=== PATIENT | male | born 1960 | race Caucasian/White ===

== ENCOUNTER 2019-01-14 20:55 | Inpatient (IN) | payer MEDICARE, OTHER ==
--- NOTE | 2019-01-14 21:33 | ED ---
Psychiatric Complaint - HPI Summary HPI Summary: This patient is a 58 year old M brought in by police to [facility] with a chief complaint of visual hallucinations that began prior to arrival. Patient states he is seeing people that might harm him. The patient rates the pain 0/10 in severity. Symptoms aggravated by nothing. Symptoms alleviated by nothing. Per police, the patient is at risk of hurting himself and the staff at the facility where he lives. Patient states that on thanksgiving he had a blood clot move to his eye and states that his vision in his right eye disappeared; it has since resolved. - History Of Current Complaint Chief Complaint: EDMentalHealth Time Seen by Provider: 01/14/19 21:13 Hx Obtained From: Patient Onset/Duration: Sudden Onset, Lasting Hours, Still Present Timing: Constant Severity Initially: Mild Severity Currently: Mild Aggravating Factor(s): Nothing Alleviating Factor(s): Nothing Associated Signs And Symptoms: Positive: Hallucinating Related History: Positive For: Prior Psychiatric Issues - Allergies/Home Medications Allergies/Adverse Reactions: Allergies Allergy/AdvReac Type Severity Reaction Status Date / Time No Known Allergies Allergy Verified 01/14/19 21:06 Home Medications: Home Medications Acetaminophen [Tylenol Extra Strength] 1,000 mg PO Q6HR 01/14/19 [History Confirmed 01/14/19] Al Hydrox/Mg Hydrox/Denisse BULK* [Mylanta - BULK BOT*] 30 ml PO DAILY PRN [History Confirmed 01/14/19] Aspirin TAB* [Aspirin 325 MG TAB*] 325 mg PO DAILY 01/14/19 [History Confirmed 01/14/19] Atenolol [Tenormin 100 MG] 100 mg PO BID 01/14/19 [History Confirmed 01/14/19] Atorvastatin* [Lipitor*] 40 mg PO DAILY 01/14/19 [History Confirmed 01/14/19] Bismuth Subsalicylate [Kaopectate] 30 ml PO DAILY PRN 01/14/19 [History Confirmed 01/14/19] Calcium Carbonate CHEW TAB* [Tums*] 1,000 mg PO BID PRN 01/14/19 [History Confirmed 01/14/19] Clopidogrel Bisulfate [Plavix] 75 mg PO DAILY 01/14/19 [History Confirmed ] Duloxetine HCl [Cymbalta] 60 mg PO DAILY 01/14/19 [History Confirmed 01/14/19] GuaiFENesin DM sugar free* [Robitussin DM sugar free*] 10 ml PO DAILY PRN [History Confirmed 01/14/19] Insulin Glargine,Hum.rec.anlog [Lantus] 20 unit SUBCUT DAILY 01/14/19 [History Confirmed 01/14/19] Levothyroxine Sodium [Synthroid] 50 mcg PO DAILY 01/14/19 [History Confirmed 04/29] Lisdexamfetamine (NF) [Vyvanse (NF)] 70 mg PO DAILY 01/14/19 [History Confirmed 01/14/19] Loperamide HCl [Imodium A-D] 2 mg PO DAILY PRN 01/14/19 [History Confirmed 01/14] Magnesium Chloride 64 mg PO BID 01/14/19 [History Confirmed 01/14/19] Magnesium Hydroxide [Milk of Magnesia] 30 ml PO DAILY PRN 01/14/19 [History Confirmed 01/14/19] Neomycin/Bacitracin/Polymyxinb [Neosporin Ointment] 28.3 gm TOPICAL DAILY PRN [History Confirmed 01/14/19] Omeprazole 20 mg PO DAILY 01/14/19 [History Confirmed 01/14/19] Ramipril 10 mg PO DAILY 01/14/19 [History Confirmed 01/14/19] amLODIPine TAB* [Norvasc 5 mg TAB*] 5 mg PO DAILY 01/14/19 [History Confirmed ] cloNIDine HCl [Clonidine HCl ER 0.1 MG] 0.05 mg PO DAILY 01/14/19 [History Confirmed 01/14/19] glipiZIDE [Glucotrol Xl] 5 mg PO BID 01/14/19 [History Confirmed 01/14/19] metFORMIN* [Glucophage 1000 MG TAB *] 1,000 mg PO BID 01/14/19 [History Confirmed 01/14/19] PMH/Surg Hx/FS Hx/Imm Hx Previously Healthy: Yes Sensory History: Denies: Hx Vision Problem EENT History: Denies: Hx Deafness Infectious Disease History: No Infectious Disease History: Denies: Traveled Outside the [place] in Last 30 Days Review of Systems Negative: Fever Positive: Other - Positive visual hallucinations All Other Systems Reviewed And Are Negative: Yes Physical Exam - Summary Physical Exam Summary: VITAL SIGNS: Reviewed. GENERAL: Patient is a well-developed and nourished male who is lying comfortable in the stretcher. Patient is not in any acute respiratory distress. HEAD AND FACE: No signs of trauma. No ecchymosis, hematomas or skull depressions. No sinus tenderness. EYES: PERRLA, EOMI x 2, No injected conjunctiva, no nystagmus. EARS: Hearing grossly intact. Ear canals and tympanic membranes are within normal limits. MOUTH: Oropharynx within normal limits. NECK: Supple, trachea is midline, no adenopathy, no JVD, no carotid bruit, no c- spine tenderness, neck with full ROM. CHEST: Symmetric, no tenderness at palpation LUNGS: Clear to auscultation bilaterally. No wheezing or crackles. CVS: Regular rate and rhythm, S1 and S2 present, no murmurs or gallops appreciated. ABDOMEN: Soft, non-tender. No signs of distention. No rebound no guarding, and no masses palpated. Bowel sounds are normal. EXTREMITIES: FROM in all major joints, no edema, no cyanosis or clubbing. NEURO: Alert and oriented x 3. No acute neurological deficits. Speech is normal and follows commands. SKIN: Dry and warm. Small area of broken skin over his scalp. PSYCH: Disorganized. Impulsive. Triage Information Reviewed: Yes Vital Signs On Initial Exam: Initial Vitals Temp Pulse Resp BP Pulse Ox 97.9 F 87 16 163/91 99 01/14/19 21:00 01/14/19 21:00 01/14/19 21:00 01/14/19 21:00 01/14/19 21:00 Vital Signs Reviewed: Yes Diagnostics - Vital Signs Vital Signs Temp Pulse Resp BP Pulse Ox 01/14/19 21:00 97.9 F 87 16 163/91 99 - Laboratory Result Diagrams: 01/14/19 21:43 01/14/19 21:43 Lab Statement: Any lab studies that have been ordered have been reviewed, and results considered in the medical decision making process. Re-Evaluation - Re-Evaluation 1st re-eval Re-Evaluation Time: 02:07 Change: Improved Comment: Patient was found to have nonketotic hyperglyinemia. In the ED course the patient was treated with IV insulin and IV fluid. The patients last glucose finger stick was 240. At this time (02:07) the patient was medically cleared. Patient advised to continue taking his diabetic medications if he is discharged home or if he is admitted to the psychiatric facility at [facility]. Course/Dx - Course Course Of Treatment: This patient is a 58 year old M brought in by police to [facility] with a chief complaint of visual hallucinations that began prior to arrival. Patient states he is seeing people that might harm him. Patient was found to have nonketotic hyperglycinemia. In the ED course the patient was treated with IV insulin and IV fluid. At 02:07 the patient was medically cleared. Patient advised to continue taking his diabetic medications if he is discharged home or if he is admitted to the psychiatric facility at [facility]. Discussed patient care with Dr. Blackmon, psychiatrist, at 03:45 and he recommends giving the patient Zyprexa and waiting for re-evaluation in the morning. Dx nonketotic hyperglycinemia and psychosis. Patient will be signed out to Dr. Cazares upon provider shift change pending mental health evaluation and disposition. - Differential Dx/Clinical Impression Provider Diagnosis: Nonketotic hyperglycinemia, Psychosis - Physician Notifications Discussed Care Of Patient With: Jefferson Blackmon Time Discussed With Above Provider: 03:45 Instructed by Provider To: Other - Discussed patient care with Dr. Blackmon, psychiatrist, at 03:45 and he recommends giving the patient Zyprexa and waiting for re-evaluation in the morning. Discharge - Sign-Out/Discharge Documenting (check all that apply): Sign-Out Patient - upon provider shift change pending [facility] Signing out patient TO: Jenn Cazares Patient Received Moderate/Deep Sedation with Procedure: No - Discharge Plan Condition: Stable Referrals: Galen Chan MD [Primary Care Provider] - - Attestation Statements Document Initiated by Scribe: Yes Documenting Scribe: Meghna Torres Provider For Whom Mansiibmaria ines is Documenting (Include Credential): Dr. Zafar Moncada MD Scribe Attestation: Meghna Alaniz, scribed for Dr. Zafar Moncada MD on 01/15/19 at 0551. Status of Scribe Document: Ready
[2019-01-14 21:49] LABS: ABS Basophils 0.1 10^3/ul (0-0.2); ABS Eosinophils 0.2 10^3/ul (0-0.6); ABS Lymphocytes 2.3 10^3/ul (1.0-4.8); ABS Monocytes 0.8 10^3/ul (0-0.8); ABS Neutrophils 7.8 10^3/ul (1.5-7.7); ABS Nucleated RBC 0 10^3/ul; Eosinophil % 1.5 %; Hematocrit 43 % (42-52); Hemoglobin 14.4 g/dl (14.0-18.0); Mean Corpuscular HGB Conc 34 g/dl (31-36); Mean Corpuscular Hemoglobin 31 pg (27-31); Mean Corpuscular Volume 92 fL (80-94); Mean Platelet Volume 9.1 fL (7.4-10.4); Nucleated Red Blood Cells % 0; Platelet Count 320 10^3/ul (150-450); Red Blood Count 4.64 10^6/ul (4.00-5.40); Red Cell Distribution Width 14 % (10.5-15); White Blood Count 11.2 10^3/ul (3.5-10.8)
[2019-01-14 22:21] LABS: Urine Appearance Clear; Urine Bacteria Absent (Absent); Urine Bilirubin Negative (Negative); Urine Blood 1+ (Negative); Urine Color Yellow; Urine Glucose 3+(>=500 mg/dL) (Negative); Urine Ketones Negative (Negative); Urine Nitrite Negative (Negative); Urine Protein 2+(100 mg/dL) (Negative); Urine Red Blood Cell Trace(0-2/hpf) (Absent); Urine Specific Gravity 1.025 (1.010-1.030); Urine Urobilinogen Negative (Negative); Urine White Blood Cell Trace(0-5/hpf) (Absent)
[2019-01-14 22:39] LABS: ALT 24 U/L (7-52); AST 25 U/L (13-39); Albumin 4.1 g/dL (3.2-5.2); Albumin/Globulin Ratio 1.1 (1-3); Alkaline Phosphatase 68 U/L (34-104); Anion Gap 13 mmol/L (2-11); BUN/Creatinine Ratio 16.4 (8-20); Blood Urea Nitrogen 23 mg/dL (6-24); CO2 Carbon Dioxide 23 mmol/L (22-32); Calcium 9.2 mg/dL (8.6-10.3); Chloride 93 mmol/L (101-111); EGFR African American 62.8 (>60); EGFR Non-African American 51.9 (>60); Globulin 3.8 g/dL (2-4); Glucose 492 mg/dL (70-100); Potassium 4.7 mmol/L (3.5-5.0); Sodium 129 mmol/L (135-145); Total Protein 7.9 g/dL (6.4-8.9)
[2019-01-14 22:47] LABS: TSH (Thyroid Stimulating Horm) 6.71 mcIU/mL (0.34-5.60)
[2019-01-14 22:47] LABS: Barbiturates Urine Screen None Detected (None Detect); Benzodiazepine Urine Screen None Detected (None Detect); Urine Cannabinoids Screen None Detected (None Detect)
[2019-01-14] MEDS ORDERED: NS 0.9% 1000 ML** 1,000 ML IV ONE (22:55)
[2019-01-14] MEDS ORDERED: Insulin REGULAR(*) 1 UNITS UNIT IV PUSH ONE (22:56)
[2019-01-14 22:57] LABS: Acetaminophen < 15 mcg/mL; Alcohol < 10 mg/dL (<10); Salicylate < 2.50 mg/dL (<30)
[2019-01-15] MEDS ORDERED: NS 0.9% 1000 ML** 1,000 ML IV ONE ×2 (00:47→09:49)
[2019-01-15] MEDS ORDERED: Insulin REGULAR(*) 1 UNITS UNIT IV PUSH ONE ×2 (00:47→09:38)
[2019-01-15] MEDS ORDERED: OLANzapine TAB* 10 MG PO ONE (03:41)
[2019-01-15] MEDS: Insulin GLARGINE(*) 1 UNITS UNIT SUBCUT SCH (05:08)
[2019-01-15] MEDS: Levothyroxine TAB* 50 MCG TAB PO SCH (05:56)
[2019-01-15] MEDS: Aspirin TAB* 325 MG PO SCH (07:57)
[2019-01-15] MEDS: Atenolol TAB* 50 MG PO SCH ×2 (07:57→22:14)
[2019-01-15] MEDS ORDERED: glipiZIDE TAB.XL* 5 MG PO SCH (08:00)
[2019-01-15] MEDS ORDERED: metFORMIN* 1,000 MG TAB PO SCH (08:00)
[2019-01-15] MEDS ORDERED: amLODIPine TAB* 5 MG PO SCH (09:00)
[2019-01-15] MEDS ORDERED: Ramipril CAP* 10 MG PO SCH (09:00)
--- NOTE | 2019-01-15 09:20 | ED ---
Progress - Progress Note Progress Note: Pt is a signout from Dr. Moncada 0700, 01/15/19 pending MHE. As of 911, pt is not on the monitor to evaluate for vital signs. He is just waking up. Pt is a resident of assisted living facility, brought in by police on 9.41 status, due to staff concern for his safety/possible harm to himself due to erratic behavior and hallucinations. Pt has hx TBI in 2018. Reportedly has been taking Vyvanse. Was seen at [facility] 01/13/19 and KS'd (no records available from there). Pt has hx type II DM poorly controlled with oral meds and insulin, hx substance abuse (daughter calls with concern that pt has been injecting meth), hx HTN, Hx hyperlipidemia, hx alcoholism, hx hypothyroidism. Pt is on Plavix. In the ED since 2100 last pm, pt was found to be hyperglycemic, and was treated with insulin and IV fluids. He was nonketotic, not DKA. His tox screen is positive for amphetamines. He continues to be drowsy in the ED. Appearance: Disheveled, chronically Ill-appearing, no pain distress, well- nourished Skin: Warm, color reflects adequate perfusion, dry. Abrasion in center of forehead that the patient states is an old scab that he picked. Pt also has dark fingernail sri lankan on index through pinky finger on R hand (states his granddaughter painted his nails). Head: Normal Head/Face inspection, atraumatic Eyes: Conjunctiva clear, PERRL, EOMI ENT: Normal inspection Neck: Supple, no nodes, no JVD Respiratory: Lungs clear, normal breath sounds, no respiratory distress Cardio: RRR, No murmur, pulses normal, brisk capillary refill Abdomen: Soft, nontender Bowel sounds: Present Musculoskeletal: Strength Intact/ROM intact, no calf tenderness, no edema. Psychological: Sleeping but rousable, in behavioral control. Prefers eyes closed Neuro: Alert, muscle tone normal, no focal deficit, moving all extremities, answers appropriately. Home Medications Medication Instructions Recorded Confirmed Type Acetaminophen [Tylenol Extra 1,000 mg PO Q6HR 01/14/19 01/14/19 History Strength] Al Hydrox/Mg Hydrox/Denisse BULK* 30 ml PO DAILY PRN 01/14/19 01/14/19 History [Mylanta - BULK BOT*] Aspirin TAB* [Aspirin 325 MG TAB*] 325 mg PO DAILY 01/14/19 01/14/19 History Atenolol [Tenormin 100 MG] 100 mg PO BID 01/14/19 01/14/19 History Atorvastatin* [Lipitor*] 40 mg PO DAILY 01/14/19 01/14/19 History Bismuth Subsalicylate [Kaopectate] 30 ml PO DAILY PRN 01/14/19 01/14/19 History Calcium Carbonate CHEW TAB* [Tums*] 1,000 mg PO BID PRN 01/14/19 01/14/19 History Clopidogrel Bisulfate [Plavix] 75 mg PO DAILY 01/14/19 01/14/19 History Duloxetine HCl [Cymbalta] 60 mg PO DAILY 01/14/19 01/14/19 History GuaiFENesin DM sugar free* 10 ml PO DAILY PRN 01/14/19 01/14/19 History [Robitussin DM sugar free*] Insulin Glargine,Hum.rec.anlog 20 unit SUBCUT DAILY 01/14/19 01/14/19 History [Lantus] Levothyroxine Sodium [Synthroid] 50 mcg PO DAILY 01/14/19 01/14/19 History Lisdexamfetamine (NF) [Vyvanse 70 mg PO DAILY 01/14/19 01/14/19 History (NF)] Loperamide HCl [Imodium A-D] 2 mg PO DAILY PRN 01/14/19 01/14/19 History Magnesium Chloride 64 mg PO BID 01/14/19 01/14/19 History Magnesium Hydroxide [Milk of 30 ml PO DAILY PRN 01/14/19 01/14/19 History Magnesia] Neomycin/Bacitracin/Polymyxinb 28.3 gm TOPICAL DAILY PRN 01/14/19 01/14/19 History [Neosporin Ointment] Omeprazole 20 mg PO DAILY 01/14/19 01/14/19 History Ramipril 10 mg PO DAILY 01/14/19 01/14/19 History amLODIPine TAB* [Norvasc 5 mg TAB*] 5 mg PO DAILY 01/14/19 01/14/19 History cloNIDine HCl [Clonidine HCl ER 0.05 mg PO DAILY 01/14/19 01/14/19 History 0.1 MG] glipiZIDE [Glucotrol Xl] 5 mg PO BID 01/14/19 01/14/19 History metFORMIN* [Glucophage 1000 MG TAB 1,000 mg PO BID 01/14/19 01/14/19 History *] - Consult/PCP Time Called: 02:30 Re-Evaluation - Re-Evaluation 1st re-eval Re-Evaluation Time: 02:07 Change: Improved Comment: Patient was found to have nonketotic hyperglycemia. In the ED course the patient was treated with IV insulin and IV fluid. The patients last glucose finger stick was 240. At this time (02:07) the patient was medically cleared. Patient advised to continue taking his diabetic medications if he is discharged home or if he is admitted to the psychiatric facility at [facility]. Second Eval Re-Evaluation Time: 09:01 Change: Unchanged Comment: Continues to sleep but is rousable. FS glucose is now 333, down from 411 after IV insulin, fluids and his am oral medications including metformin and glipizide. Pt had been given Zyprexa 10mg at 0341 per psychiatrist for his hallucinations and behavior. He was not given other sedation. Pt continues to sleep, ignoring his breakfast. Dr. Baum advises that he cannot evaluate pt until he is awake enough to interview. Additional regular insulin 10U IV ordered and continued IV fluids. Third Eval Re-Evaluation Time: 12:00 Change: Unchanged Comment: remains drowsy. Can sit up. Answers some questions, but falls right back to sleep. Did not eat breakfast. Course/Dx - Course Course Of Treatment: Pt is a 58 y/o M signed out from Dr. Moncada 07, 01/15/19, pending MHEafter being brought in from assisted living on 9.41 status with hallucinations. As of 911, pt is sleeping but rousable, moving all extremities , and is responding appropriately. He has an abrasion on his center forehead that he states is an old scab he picked, and dark fingernail sri lankan on his R index through pinky finger. FS glucose 333 at 0927, received more insulin, 10U regular IV, and IV fluids. Made aware of blood glucose at 1235, blood glucose is 226. At 1237, Traci RN made me aware that the patient's daughter reports he may have been shooting up methamphetamine last night, but also was reported to be taking Vyvanse as an outpatient. [address] Baum who is in the ED to evaluate pt. Pt remains too drowsy to give meaningful psychiatric interview. Will consult medicine to admit for altered mental status and further evaluation and treatment of his hyperglycemia. As of 1243 the pt can be taken off of q15 min observation. He has been calm and in behavioral control. Will admit medicine, Dr. Mart, who accepts pt at 1210pm. - Diagnoses Provider Diagnoses: Delirium, Hallucinations, Hyperosmolar non-ketotic state in patient with type 2 diabetes mellitus, Hyperglycemia due to type 2 diabetes mellitus, Altered mental status, unspecified, Hx of substance abuse, Hypertension, poor control, Acute kidney injury - Critical Care Time Critical Care Time: 30-74 min - 30 mins Discharge - Sign-Out/Discharge Documenting (check all that apply): Patient Departure - Discharge Plan Condition: Stable Disposition: ADMITTED TO [facility] - Billing Disposition and Condition Condition: STABLE Disposition: Admitted to [facility] - Attestation Statements Document Initiated by Scribe: Yes Documenting Scribe: Krista Fabian Provider For Whom Mansiibe is Documenting (Include Credential): Dr. Jenn Cazares MD. Scribe Attestation: Krista Alaniz, scribed for Dr. Jenn Cazares MD. on 01/16/19 at 0257. Scribe Documentation Reviewed: Yes Provider Attestation: The documentation as recorded by the mansiibeKrista accurately reflects the service I personally performed and the decisions made by me, Dr. Jenn Cazares MD. Status of Scribe Document: Viewed Consult Consult: 1210 - Spoke with Dr. Mart who will be the accepting physician to [facility].
[2019-01-15] MEDS ORDERED: Ondansetron INJ* 2 MG/ML VIAL IV PRN (13:31)
[2019-01-15] MEDS ORDERED: Acetaminophen TAB* 325 MG PO PRN (13:31)
[2019-01-15] MEDS ORDERED: Magnesium Hydroxide LIQ* 30 ML UDC PO PRN (13:41)
[2019-01-15] MEDS ORDERED: Dextrose 50% Syringe 50 ML* 25 GM/50 ML SYRINGE IV PUSH PRN (13:46)
[2019-01-15 13:48] LABS: EGFR African American 92.5 (>60); EGFR Non-African American 76.5 (>60); Potassium 4.1 mmol/L (3.5-5.0)
[2019-01-15] MEDS ORDERED: Albuterol 2.5 MG/3 ML NEB.SOL* (0.083%) INH PRN (14:02)
[2019-01-15 14:54] LABS: T4, Total 9.15 mcg/dL (6.09-12.23)
[2019-01-15 14:58] LABS: Free T3 3.7 pg/mL (2.5-3.9)
[2019-01-15] MEDS: Heparin VIAL(*) 5000 UNITS/ML VIAL (FIVE THOUSAND) SUBCUT SCH ×2 (17:45→22:14)
[2019-01-15] MEDS: NS 0.9% 1000 ML** 1,000 ML IV SCH (17:47)
[2019-01-15] MEDS: Insulin LISPRO* 1 UNITS UNIT SUBCUT SCH (18:50)
[2019-01-15 19:01] LABS: HDL Cholesterol 24.6 mg/dL
--- NOTE | 2019-01-15 19:46 | HP ---
CC: Dr. Chan; Dr. Jung Mart* ADMISSION HISTORY AND PHYSICAL: DATE OF ADMISSION: 01/15/19 PRIMARY CARE PROVIDER: Dr. Chan. MY ATTENDING WHILE IN THE HOSPITAL: Dr. Crispin Mart* (dictated by GHULAM Reed). CHIEF COMPLAINT: Altered mental status, hallucinations. HISTORY OF PRESENT ILLNESS: Mr. Goncalves is a 58-year-old male with a past medical history of traumatic brain injury, substance abuse, alcoholism, diabetes mellitus who presents to the emergency department from the [facility] with concern for hallucination. The patient is only moderately responsive at the time of this evaluation, so the history and physical is called together from his family and from other collateral sources of information. However, it seems that although the patient was recently admitted to a behavioral services unit in a hospital in [place] for hallucinations, it is unclear when he was released; however, he was released to the [facility] in [place], [place] and most recently was first found in the [employer] parking lot wandering around per his daughter who is called by a bystander. It is unclear how he got back to the [facility], but then there was more concerns for the patient having hallucinations, being agitated. There was also concerns that he had track lim on his arms from possible injection drugs. The patient does have a history of abusing stimulant drugs including amphetamines. The patient was seen 2 days ago in [facility] Emergency Department for unknown reasons and had a CT scan at that time, which is unavailable to us at this time. The patient is generally estranged from his friends and family and no further history was able to be obtained. The patient was seen in consultation by Psychiatry and they were unable to fully assess the patient due to his altered mental status. As such, we were asked to evaluate the patient for admission to the hospital. PAST MEDICAL HISTORY: 1. Traumatic brain injury. 2. Hypertension. 3. Hyperlipidemia. 4. Substance abuse. 5. Diabetes mellitus, type 2. 6. Alcoholism. 7. Hypothyroidism. PAST SURGICAL HISTORY: Unknown. MEDICATIONS: 1. Clonidine 0.5 mg daily. 2. Omeprazole 20 mg p.o. daily. 3. Duloxetine 60 mg p.o. daily. 4. Vyvanse 70 mg p.o. daily. 5. Aspirin 325 mg p.o. daily. 6. Lipitor 40 mg p.o. daily. 7. Lantus 20 mg p.o. daily. 8. Enalapril 10 mg p.o. daily. 9. Plavix 75 mg p.o. daily. 10. Atenolol 100 mg p.o. b.i.d. 11. Amlodipine 5 mg p.o. daily. 12. Glucotrol 5 mg p.o. b.i.d. 13. Metformin 1000 mg b.i.d. 14. Magnesium hydroxide 64 mg p.o. daily. 15. Levothyroxine 50 mcg daily. FAMILY HISTORY: The patient's both parents of cancer, one of them of liver cancer, unknown which one. SOCIAL HISTORY: The patient is not known to have ever smoked. The patient abuses alcohol and in the past has abused marijuana, cocaine, and methamphetamine. The patient used to work in a [employer] factory. The patient is and has 2 children. REVIEW OF SYSTEMS: Unobtainable at this time with the patient. PHYSICAL EXAMINATION GENERAL: The patient is a 58-year-old male, who appears stated age, sitting in the bed, in no acute distress. VITAL SIGNS: At the time of evaluation, temperature is 97.8, pulse rate 58, respiratory rate 18, oxygen saturation 97% on room air, blood pressure 130/75. HEENT: Head: Normocephalic, atraumatic. Sclerae anicteric. No conjunctival injection. Nasal mucosa is moist. Oral mucosa moist. No pharyngeal erythema, discharge, or exudate. NECK: Supple, nontender. No lymphadenopathy. No carotid bruits auscultated. No JVD. RESPIRATORY: Clear to auscultation bilaterally. No wheezes, rales, or rhonchi. Good air exchange bilaterally. CARDIAC: Regular rate and rhythm. No clicks, murmurs, gallops, or rubs. Pulses 2+ in the bilateral dorsalis pedis, posterior tibial, and radial areas. ABDOMEN: Soft, nontender, and nondistended. Bowel sounds present. Normoactive in all 4 quadrants. No hepatosplenomegaly. No abdominal bruits auscultated. No hepatojugular reflux. GENITOURINARY: No suprapubic or CVA tenderness. SKIN: Clean, dry, intact. Possible track lim in the left antecubital fossa. Small, open area on the forehead. DIAGNOSTIC STUDIES/LAB DATA: White blood cell count 11.2, hemoglobin 14.4, platelet count 320. ABG, pH 7.41, pCO2 46, pO2 less than 38, HCO3 26.1. Sodium 129, potassium 4.7, chloride 93, carbon dioxide 23, anion gap 13, BUN 23 , creatinine 1.4, glucose 492. Calcium 9.2. AST 25, ALT 24, alkaline phosphatase 98. Albumin 4.1, globulin 3.8. TSH 6.71. Studies: Brain CT is read as chronic appearing encephalomalacia in left inferior cerebellar hemisphere consistent with old infarct, white khalil matter attenuation in the right occipital lobe may represent late subacute or chronic infarct. Negative for mass effect, negative for intracranial hemorrhage. ASSESSMENT AND PLAN/IMPRESSION: Mr. Goncalves is a 58-year-old male with a past medical history significant for substance abuse, traumatic brain injury, and diabetes mellitus as well as alcoholism who presents to the emergency department with altered mental status and hallucinations and is currently lethargic and unable to answer questions. The patient was unable to be fully evaluated by Psychiatry and will be admitted to the medical floor for further evaluation of his altered mental status before possibly going to behavioral services unit. 1. Altered mental status. The cause of this is unclear, but if the patient has been abusing medications, it may be that the patient has been awake for a long period of time. The patient does not have any focal neurological deficits and is able to wake up for short periods of time but did not answer any questions with any reasonable level of responsiveness. The patient's TSH is slightly elevated. We will check T3 and T4. We will check ammonia level. The patient's blood gas is within normal limits. The patient has elevated glucose, but his BMP is otherwise unremarkable for causes of altered mental status. He is nonketotic. The patient has received 3 L of fluids and will continue to receive fluids. He does appear dehydrated. Most of patient's mind is psychologically active. Medications will be held. The patient will be monitored closely. 2. Diabetes mellitus, type 2, hyperglycemia. The patient is markedly hyperglycemic. The patient also has an elevated creatinine. It could be that the patient's dehydration from hyperglycemia is contributing. The patient does not have DKA. We will give the patient a large amount of fluids and cover this with insulin. Given the patient's MARLENE, we will hold the patient's metformin and glipizide. We will monitor the patient closely with this. We will check hemoglobin A1c. 3. Substance abuse. The patient has tested positive for amphetamines in his urine. He is on Vyvanse, which should not cause a positive for amphetamines. We will monitor. It is very likely the patient has been taking amphetamines. He will be monitored closely and will be seen in consultation by the psychiatrist. 4. Traumatic brain injury. Abnormal CT scan. The patient has a history of TBI per his report and his CT scan is concerning for multiple infarct. We will get an MRI to further elucidate this. He has no acute infarct on his CT. 5. Hypothyroidism. The patient's TSH is slightly elevated. We will check T3 and T4 as above and continue his levothyroxine at current dose. 6. Hypertension. Continue the patient's amlodipine and atenolol. Hold his ramipril given his MARLENE. 7. Hyperlipidemia. Continue the patient's statin. 8. DVT prophylaxis. Heparin subcu. 9. FEN. The patient will have fluids as above and a clear liquid diet, advance as tolerated. 10. Disposition. The patient will be admitted for observation to the medical floor. TIME SPENT: Approximately 75 minutes were spent on admission of this patient, 45 of which was spent [id number] with the patient for obtaining history and physical from his collateral sources. This plan has been discussed with my attending, Dr. Crispin Mart; he is in agreement. GHULAM REED [id number]/[facility] #: [id number] BERENICE
[2019-01-15] MEDS: Magnesium Chloride EC TAB* 64 MG PO SCH (22:17)
[2019-01-15] MEDS: Atorvastatin* 40 MG TAB PO SCH (22:17)
[2019-01-16] MEDS: Insulin LISPRO* 1 UNITS UNIT SUBCUT SCH ×5 (00:30→23:50)
[2019-01-16] MEDS: NS 0.9% 1000 ML** 1,000 ML IV SCH ×2 (05:50→21:45)
[2019-01-16] MEDS: Heparin VIAL(*) 5000 UNITS/ML VIAL (FIVE THOUSAND) SUBCUT SCH ×3 (06:14→21:11)
[2019-01-16] MEDS: Levothyroxine TAB* 50 MCG TAB PO SCH (06:15)
[2019-01-16] MEDS: Insulin GLARGINE(*) 1 UNITS UNIT SUBCUT SCH (06:20)
[2019-01-16 06:47] LABS: ABS Basophils 0.1 10^3/ul (0-0.2); ABS Eosinophils 0.2 10^3/ul (0-0.6); ABS Lymphocytes 2.6 10^3/ul (1.0-4.8); ABS Monocytes 0.6 10^3/ul (0-0.8); ABS Neutrophils 4.9 10^3/ul (1.5-7.7); ABS Nucleated RBC 0 10^3/ul; Eosinophil % 2.6 %; Hematocrit 43 % (42-52); Hemoglobin 14.3 g/dl (14.0-18.0); Mean Corpuscular HGB Conc 34 g/dl (31-36); Mean Corpuscular Hemoglobin 31 pg (27-31); Mean Corpuscular Volume 93 fL (80-94); Nucleated Red Blood Cells % 0; Platelet Count 274 10^3/ul (150-450); Red Cell Distribution Width 14 % (10.5-15); White Blood Count 8.3 10^3/ul (3.5-10.8)
[2019-01-16 07:03] LABS: BUN/Creatinine Ratio 14.1 (8-20); Calcium 8.4 mg/dL (8.6-10.3); EGFR African American 93.6 (>60); EGFR Non-African American 77.4 (>60); Magnesium 1.2 mg/dL (1.9-2.7); Potassium 4.1 mmol/L (3.5-5.0)
[2019-01-16] MEDS ORDERED: Magnesium Sulfate 2 GM IV* 2 GM/50 ML BAG IVPB ONE (07:54)
[2019-01-16] MEDS ORDERED: Atorvastatin* 40 MG TAB PO SCH (09:00)
[2019-01-16] MEDS ORDERED: Ramipril CAP* 10 MG PO SCH (09:00)
[2019-01-16] MEDS ORDERED: Levothyroxine TAB* 50 MCG TAB PO SCH (09:00)
[2019-01-16] MEDS ORDERED: cloNIDine TAB* 0.1 MG PO SCH (09:00)
[2019-01-16] MEDS: amLODIPine TAB* 5 MG PO SCH (09:27)
[2019-01-16] MEDS: cloNIDine TAB* 0.1 MG PO SCH ×2 (09:27→21:11)
[2019-01-16] MEDS: Magnesium Chloride EC TAB* 64 MG PO SCH ×2 (09:27→21:11)
[2019-01-16] MEDS: Clopidogrel TAB* 75 MG PO SCH (09:27)
[2019-01-16] MEDS: Pantoprazole TAB * 40 MG TAB PO SCH (09:27)
[2019-01-16] MEDS: Atenolol TAB* 50 MG PO SCH ×2 (09:27→21:11)
[2019-01-16] MEDS: Aspirin TAB* 325 MG PO SCH (09:27)
[2019-01-16] MEDS: DULoxetine DR CAP* 60 MG CAP.DR PO SCH (10:38)
--- NOTE | 2019-01-16 14:40 | CONSULT ---
Consult Consult: ROSALIE " I am on Vyvanse" The patient was brought to [facility] by the police. He was having visual hallucinations at the [facility] and reported that he saw a man with a crossbow that no one else saw. He followed up this statement by saying, I know you are going to not going to believe me and think I am crazy. He said that he recently has a stroke and has diminished vision in his right eye. He denied access to firearms or stockpiles of medications. He reported adequate sleep and appetite. The patient denied suicidal and or homicidal ideation intent or plan. The patient denied auditory and/ or current visual hallucinations. He reported that he continues to pick his head and is unable to stop. He denied being on pain medications. He said that his daughter is worried about him and thinks that he is doing meth. Psychosis According to the report he saw things other people do not see but currently at this time he doesnt. He denied feeling that TV is making references. Denied feeling that people are spying , following , or reading their thoughts. Bipolar Denied symptoms of saqib such as having many ideas at once. Denied increased talkativeness where no one can interrupt. Denied feeling irritable most of the time while having an persistent abundance of energy most of the day without the use of energy drinks, stimulants, or recreational drug use. Denied an increase in intensity in goal directed activities. Denied having the decreased need to sleep for days , having prolonged elevated heighted mood , or feeling on top of the world. Denied impulsive risky sexual encounters. Denied spending money recklessly , going on spending sprees wiping out savings. Denied impulsively traveling out of town or country, having super [place], and unrealistic wealth or fame. MDD Denied feeling depressed or having diminished interest in hobbies or interests which were present in the past , for most of the time, lasting more than 2 weeks. Denied having crying spells , feeling empty inside, feelings of hopelessness or worthless. Denied unintentional weight loss or appetite . Denied interruption of sleep or feeling tired throughout the day. Denied loss of energy or lack of motivation to complete tasks. Denied overwhelming feelings of guilt , or decreased concentration. Denied recurrent thoughts of . Denied feeling no purpose in life or would be better off . Anxiety Denied having symptoms of anxiety such as having times where heart feels that it is beating out of chest , sweaty palms, or shallow breathing. Denied having uncomfortable or intrusive thoughts. Denied feeling restless, high strung, or worrying too much most of the time. PAST PSYCHIATRIC HISTORY: Prior Diagnosis : ADHD History of past Psychiatric Hospitalizations: 1 prior psychiatric admission at [facility] a month ago for what he said " People think I do drugs" History of past suicide/homicide attempts : Denied past suicide attempts. Denied past homicidal incidents. Outpatient follow-up: Dr. Fitzgerald Medications: Past trials of medications include vyvanse for ADHD. FAMILY HISTORY: - Suicide: Denied family history of suicide. - Mental illness: Denied a history of mental health in immediate family members. - Substance abuse: Denied substance abuse among family members. SUBSTANCE ABUSE HISTORY: Denied using tobacco, heroin and cocaine other illicit substances. Denied abusing pills not prescribed . Denied past Substance abuse treatment. He uses alcohol during social occasions occasionally. SOCIAL HISTORY: 8 years ago and has 12 children. Currently lives at the [facility]. Lived in [place] on his own. He worked at a [employer] and [employer]. - service history: Denied PAST MEDICAL HISTORY: Diabetes, Recent CVA - Allergies: Denied drug or other allergies. Physical Exam: Please see ED note Mental Status Exam on Admission APPEARANCE : 58 year old male who appears stated age. Patient appears to fair hygiene and grooming. BEHAVIOR: Cooperative , calm EYE CONTACT: Fair PSYCHOMOTOR ACTIVITY: No psychomotor agitation or retardation. MOVEMENTS: No abnormal movements observed. SPEECH : Normal rate, rhythm, volume and tone. MOOD : " I am not on drugs " AFFECT : constricted THOUGHT PROCESS: loose associations THOUGHT CONTENT: no preoccupations PERCEPTION: No current auditory or visual hallucinations. Doesnt appear to be responding to internal cues. SUICIDALITY Denied suicidal ideation, intent or plan. HOMICIDALITY Denied homicidal ideation, intent or plan. Insight/judgment: Fair insight and judgment ORIENTATION: Oriented to self, location, and time. Diagnosis on Admission: Substance induced Psychotic Disorder. Excoriation Disorder. Assessment: 58 year old with history of stimulant abuse came to the hospital and is currently being treated on the medical floor at [facility] Plan # The patient doesnt require psychiatric inpatient admission at this time #Can start abilify 5mg po daily, # Outpatient follow up and monitoring for metabolic changes given obesity and diabetes. #Can start naltrexone 50mg daily for skin picking. Make sure not on opiate pain medications as this can precipitate withdrawal # Collaboration with primary team was made to communicate recommendations. Primary team plans to obtain collateral information from daughter. #Substance Abuse resources offered to patient and declined. Patient has children, support network, no access to firearms, no past suicide attempts, compliant with treatment. Please contact Psychiatry department if you have any questions Jose Maria Toro M.D. Psychiatrist
[2019-01-16] MEDS ORDERED: Iodixanol* (CONTRAST) 320 MG/ML 100 ML SDV IV ONE (17:36)
--- NOTE | 2019-01-16 20:14 | PN ---
Subjective Date of Service: 01/16/19 Interval History: Patient seen and examined. States his is feeling well, has baseline visual disturbance (old stroke deficit) but does not feel it's worse. Denies hallucinations, denies headache, no unilateral weakness. Does complain of cough. Objective Active Medications: Acetaminophen (Tylenol Tab*) 650 mg PO Q6H PRN PRN Reason: FEVER/PAIN Albuterol (Ventolin 2.5 Mg/3 Ml Neb.Colette*) 2.5 mg INH Q4H PRN PRN Reason: SOB/WHEEZING Amlodipine Besylate (Norvasc Tab*) 10 mg PO DAILY [facility] Last Admin: 01/16/19 09:27 Dose: 10 mg Aspirin (Aspirin Tab*) 325 mg PO DAILY [facility] Last Admin: 01/16/19 09:27 Dose: 325 mg Atenolol (Tenormin Tab*) 100 mg PO BID [facility] Last Admin: 01/16/19 09:27 Dose: 100 mg Atorvastatin Calcium (Lipitor*) 40 mg PO 2099 [facility] Last Admin: 01/15/19 22:17 Dose: 40 mg Clonidine HCl (Catapres Tab*) 0.1 mg PO 0900,2099 [facility] Last Admin: 01/16/19 09:27 Dose: 0.1 mg Clopidogrel Bisulfate (Plavix Tab*) 75 mg PO DAILY [facility] Last Admin: 01/16/19 09:27 Dose: 75 mg Dextrose (D50w Syringe 50 Ml*) 12.5 gm IV PUSH .FOR FS < 60 - SS PRN PRN Reason: FS < 60 Duloxetine HCl (Cymbalta Cap*) 60 mg PO DAILY [facility] Last Admin: 01/16/19 10:38 Dose: 60 mg Heparin Sodium (Porcine) (Heparin Vial(*)) 5,000 units SUBCUT Q8HR [facility] Last Admin: 01/16/19 15:53 Dose: Not Given Sodium Chloride (Ns 0.9% 1000 Ml) 1,000 mls @ 75 mls/hr IV PER RATE [facility] Last Admin: 01/16/19 05:50 Dose: 75 mls/hr Insulin Glargine (Lantus(*)) 20 units SUBCUT Q24H [facility] Last Admin: 01/16/19 06:20 Dose: 20 units Insulin Human Lispro (Humalog*) 0 units SUBCUT Q6HR [facility]; Protocol Last Admin: 01/16/19 17:45 Dose: Not Given Levothyroxine Sodium (Synthroid Tab*) 50 mcg PO DAILY@0600 [facility] Last Admin: 01/16/19 06:15 Dose: 50 mcg Magnesium Chloride (Slow Mag Ec Tab*) 64 mg PO BID [facility] Last Admin: 01/16/19 09:27 Dose: 64 mg Magnesium Hydroxide (Milk Of Magnesia Liq*) 30 ml PO DAILY PRN PRN Reason: CONSTIPATION Ondansetron HCl (Zofran Inj*) 4 mg IV Q6H PRN PRN Reason: NAUSEA Pantoprazole Sodium (Protonix Tab*) 40 mg PO DAILY [facility] Last Admin: 01/16/19 09:27 Dose: 40 mg Vital Signs - 8 hr 01/16/19 14:49 Temperature 97.1 F Pulse Rate 78 Respiratory 24 Rate Blood Pressure 144/76 (mmHg) O2 Sat by Pulse 93 Oximetry Oxygen Devices in Use Now: None Appearance: alert, NAD Eyes: No Scleral Icterus, PERRLA Ears/Nose/Mouth/Throat: NL Teeth, Lips, Gums, Mucous Membranes Moist Neck: NL Appearance and Movements; NL JVP, Trachea Midline Respiratory: Symmetrical Chest Expansion and Respiratory Effort, Clear to Auscultation Cardiovascular: NL Sounds; No Murmurs; No JVD, RRR, No Edema Abdominal: NL Sounds; No Tenderness; No Distention Skin: No Rash or Ulcers Neurological: Alert and Oriented x 3 Nutrition: Taking PO's Result Diagrams: 01/16/19 06:39 01/16/19 06:39 Microbiology and Other Data: Microbiology 01/15/19 17:42 Aerobic Blood Culture - Preliminary Blood Venous No Growth Day 1 Anaerobic Blood Culture - Preliminary No Growth Day 1 01/15/19 17:55 Nasal Screen MRSA (PCR) - Final Nasal Mrsa Not Detected 01/14/19 21:55 Urine Culture - Final Urine No Growth (<1,000 CFU/mL) Diagnostic Imaging: Patient Name: RYLAND YBARRA Medical Record#: [id number] Ordering Physician: Mendez PARMAR Acct.#: [id number] : 1960 Age: 58 Sex: M Location: [address] [place] [address] - MEDICAL Exam Date: 01/15/19 1349 ADM Status: ADM Moon Order Information: MRI BRAIN W/O Accession Number: [id number] CPT: 82175 Indication: Possible stroke on CT. Sagittal and axial T1, axial T2, FLAIR, diffusion and susceptibility weighted images of the brain were obtained. Correlation is made with a CT scan done earlier the same day. Ventricular structures are midline. No midline shift is noted. Central and cortical atrophy is noted. Encephalomalacia in the left cerebellum is noted. No restriction of diffusion is noted in the left cerebellum. This likely represents atrophy. In the right posterior occipital lobe there is likely gliosis noted. There are however 2 small lacunar infarcts in the right isthmus corpus callosum. These demonstrates restriction of diffusion and decreased signal on the ADC map. Susceptibility weighted images demonstrates no definite hemosiderin. The T2 weighted images demonstrates increased signal in the right occipital lobe area. IMPRESSION: Likely old right occipital lobe infarct and left cerebellar infarct. There are 2 small foci of restriction of diffusion in the isthmus of the corpus callosum on the DWI images with decreased signal on the ADC map suggestive of lacunar infarct. Assess/Plan/Problems-Billing Assessment: This is a 58 year old male with hx of TBI and CVA, unclear psychiatric history and hx of amphetamine abuse that presented to ER with police and EMS for acute confusion and hallucinations. - Patient Problems (1) Hallucination Code(s): R44.3 - HALLUCINATIONS, UNSPECIFIED SNOMED Code(s): 8612963 Comment: - Psychiatry consulted, appreciate any recommendations - DC obs, patient is appropriate (2) CVA (cerebral vascular accident) Code(s): I63.9 - CEREBRAL INFARCTION, UNSPECIFIED SNOMED Code(s): 629167704 Comment: - Old infarct and encephalomalacia on MRI with possible new lacunar infarcts - Neuro consult appreciated - ECHO, CTA, statin, ASA, patient is already on plavix - NPO per neuro? will obtain swallow eval (3) Diabetes Code(s): E11.9 - TYPE 2 DIABETES MELLITUS WITHOUT COMPLICATIONS SNOMED Code(s) : 88271424 Comment: - With hyperglycemia and electrolyte disturbance at admission now improved - Accuchecks with ISS Q6h while NPO (4) Hypothyroid Code(s): E03.9 - HYPOTHYROIDISM, UNSPECIFIED SNOMED Code(s): 62597570 Comment: - continue synthroid (5) Full code status Code(s): Z78.9 - OTHER SPECIFIED HEALTH STATUS SNOMED Code(s): 301334270 Status and Disposition: Inpatient. Dispo TBD, patient cannot return to [facility] as per SW.
[2019-01-16] MEDS: Atorvastatin* 40 MG TAB PO SCH (21:11)
--- NOTE | 2019-01-16 22:15 | CONS ---
NEUROLOGY CONSULTATION REPORT: DATE OF CONSULT: 01/16/19 LOCATION: He is in room 404. REFERRING PROVIDER: GHULAM Jackson CHIEF COMPLAINT: Hallucinations, abnormal MRI scan. HISTORY OF PRESENT ILLNESS: Waldemar Goncalves is a 58-year-old right-handed man who was brought into the hospital yesterday, I believe, by ambulance from [facility] where he lives. He was having active visual hallucinations. He apparently had been wandering in the community as he was found wandering in a parking lot in [facility]. A bystander called his daughter somehow and somehow he ended back in the [facility]. There is also a history that he was seen 2 days prior to that at [facility]. We really do not have good details. In any case, he has a history of alcohol and substance abuse including amphetamines and there was a suggestion of possible needle lim in his antecubital space. He was seen by Psychiatry who felt he had drug- induced hallucinations. Currently, the patient is very somnolent and it is hard to get him engaged. He denies hallucinations today. As part of his evaluation, he had an MRI scan of the brain interpreted by Dr. Vargas as showing prior infarctions in the left cerebellum, right occipital region, and possible acute to subacute infarctions in the right splenium of the corpus callosum. I reviewed the images and I agree with the old infarctions, but the 2 small areas of restricted diffusion in the corpus callosum are not clearly acute infarcts but might be T2 shine-through. I was asked to see him in neurological evaluation. The patient is a poor historian and is somnolent. He says he had a stroke last January. It is hard to sort out how it affected him, but it sounds like he was very unsteady on his feet. PAST MEDICAL HISTORY: From the records is otherwise notable for possible traumatic brain injury, although the patient does not endorse that when I ask him about it. He has a history of type 2 diabetes, alcoholism, hypothyroidism, hypertension, hyperlipidemia. MEDICATIONS: At home are supposed to be: 1. Clonidine. 2. Omeprazole. 3. Duloxetine. 4. Vyvanse. 5. Aspirin. 6. Lipitor. 7. Lantus. 8. Enalapril. 9. Plavix 75 mg. 10. Atenolol 100 mg p.o. b.i.d. 11. Amlodipine 5 mg p.o. daily. 12. Glucotrol 5 mg p.o. b.i.d. 13. Metformin 1000 mg b.i.d. 14. Levothyroxine 50 mcg daily. 15. Magnesium hydroxide 64 mg p.o. daily. ALLERGIES: According to computer records, he does not have any drug allergies. REVIEW OF SYSTEMS: Review of systems on this patient is nonproductive because he is so somnolent. PHYSICAL EXAM: He is an obese gentleman lying in the hospital bed. Temperature 97.1, blood pressure 144/76, heart rate 80. Heart is in a regular rhythm and no murmurs. I do not hear any cervical bruits. I got him to open his mouth and I do not see any tongue biting or other oral trauma. Neurologically, with the stimulation, he opens his eyes to exhibit normal pupillary responses from 4 down to about 2.5 mm. I got a brief look at his fundus on the right, but I did not see any abnormalities and his discs looked sharp. Eye movements were full, but I could not maintain his attention long enough for a good assessment. He seems to have reasonably good strength in his arms, but has a spastic catch in the right arm and to a lesser extent, the right leg. I could not get him to cooperate for coordination testing. There was no myoclonus or asterixis. His speech was dysarthric when he was able to participate. DIAGNOSTIC STUDIES/LAB DATA: Laboratory data includes the MRI as reported above. CBC was notable for an elevated white blood cell count of 11.2 on when he came in, normal today. Chemistry profile was notable for a glucose of 492 when he came in, 192 this morning. Creatinine was elevated at 1.4 when he came in, 0.99 this morning. Magnesium has been low when checked today at 1.2 and he has been given 2 g of magnesium sulfate since. TSH is borderline elevated at 6.71 but T4 and T3 are normal. Liver enzymes and ammonia are normal. A tox screen was positive for amphetamines. Serum alcohol less than 10. IMPRESSION: Impression is that of drug-induced hallucinosis. It appears resolved but now he is hypersomnolent. I do not know if that is from amphetamine withdrawal or medications that he has received since he has gotten here. He was severely hyperglycemic and his diabetes has been poorly controlled looking at his hemoglobin A1c. There are some punctate abnormalities on diffusion in the right corpus callosum. It may represent a subacute very small infarction. We will go ahead and do a stroke workup and get a CT angiogram of head and neck and transthoracic echocardiogram. Currently, he is on Plavix and aspirin and I agree with that for now. I would recommend switching him to Plavix monotherapy after 30 days unless his echocardiogram shows a cardioembolic source. We will take a look at his CT angiogram as well and see if there is any intervention recorded from that perspective. He should remain on atorvastatin as his blood sugar continued to be aggressively controlled. Dr. Ochoa will be on service tomorrow and can follow up. [id number]/[facility] #: [id number] BERENICE
[2019-01-17] MEDS: Insulin GLARGINE(*) 1 UNITS UNIT SUBCUT SCH (05:17)
[2019-01-17] MEDS: Insulin LISPRO* 1 UNITS UNIT SUBCUT SCH ×4 (05:17→22:05)
[2019-01-17] MEDS: Heparin VIAL(*) 5000 UNITS/ML VIAL (FIVE THOUSAND) SUBCUT SCH ×3 (05:17→22:13)
[2019-01-17] MEDS: Levothyroxine TAB* 50 MCG TAB PO SCH (05:18)
[2019-01-17 10:22] LABS: BUN/Creatinine Ratio 9.5 (8-20); Calcium 8.2 mg/dL (8.6-10.3); EGFR African American 98.2 (>60); EGFR Non-African American 81.1 (>60); Magnesium 1.5 mg/dL (1.9-2.7); Potassium 4.1 mmol/L (3.5-5.0)
[2019-01-17] MEDS: Atenolol TAB* 50 MG PO SCH ×2 (10:23→21:07)
[2019-01-17] MEDS: DULoxetine DR CAP* 60 MG CAP.DR PO SCH (10:23)
[2019-01-17] MEDS: cloNIDine TAB* 0.1 MG PO SCH ×2 (10:23→21:06)
[2019-01-17] MEDS: Magnesium Chloride EC TAB* 64 MG PO SCH ×2 (10:23→21:05)
[2019-01-17] MEDS: Pantoprazole TAB * 40 MG TAB PO SCH (10:23)
[2019-01-17] MEDS: Clopidogrel TAB* 75 MG PO SCH (10:23)
[2019-01-17] MEDS: Aspirin TAB* 325 MG PO SCH (10:23)
[2019-01-17] MEDS: amLODIPine TAB* 5 MG PO SCH (10:23)
--- NOTE | 2019-01-17 12:34 | PN ---
Subjective Date of Service: 01/17/19 Interval History: Patient seen and examined. No acute overnight events. Patient states he has no headache, no dizziness, no pain. Deneis chest pain or SOB. Tolerating PO. Objective Active Medications: Acetaminophen (Tylenol Tab*) 650 mg PO Q6H PRN PRN Reason: FEVER/PAIN Albuterol (Ventolin 2.5 Mg/3 Ml Neb.Colette*) 2.5 mg INH Q4H PRN PRN Reason: SOB/WHEEZING Amlodipine Besylate (Norvasc Tab*) 10 mg PO DAILY [facility] Last Admin: 01/17/19 10:23 Dose: 10 mg Aspirin (Aspirin Tab*) 325 mg PO DAILY [facility] Last Admin: 01/17/19 10:23 Dose: 325 mg Atenolol (Tenormin Tab*) 100 mg PO BID [facility] Last Admin: 01/17/19 10:23 Dose: 100 mg Atorvastatin Calcium (Lipitor*) 40 mg PO 2100 [facility] Last Admin: 01/16/19 21:11 Dose: 40 mg Clonidine HCl (Catapres Tab*) 0.1 mg PO 0900,2099 [facility] Last Admin: 01/17/19 10:23 Dose: 0.1 mg Clopidogrel Bisulfate (Plavix Tab*) 75 mg PO DAILY [facility] Last Admin: 01/17/19 10:23 Dose: 75 mg Dextrose (D50w Syringe 50 Ml*) 12.5 gm IV PUSH .FOR FS < 60 - SS PRN PRN Reason: FS < 60 Duloxetine HCl (Cymbalta Cap*) 60 mg PO DAILY [facility] Last Admin: 01/17/19 10:23 Dose: 60 mg Heparin Sodium (Porcine) (Heparin Vial(*)) 5,000 units SUBCUT Q8HR [facility] Last Admin: 01/17/19 05:17 Dose: 5,000 units Sodium Chloride (Ns 0.9% 1000 Ml) 1,000 mls @ 75 mls/hr IV PER RATE [facility] Last Admin: 01/16/19 21:45 Dose: 75 mls/hr Insulin Glargine (Lantus(*)) 20 units SUBCUT Q24H [facility] Last Admin: 01/17/19 05:17 Dose: 20 units Insulin Human Lispro (Humalog*) 0 units SUBCUT Q6HR [facility]; Protocol Last Admin: 01/17/19 05:17 Dose: 2 units Levothyroxine Sodium (Synthroid Tab*) 50 mcg PO DAILY@0600 [facility] Last Admin: 01/17/19 05:18 Dose: 50 mcg Magnesium Chloride (Slow Mag Ec Tab*) 64 mg PO BID [facility] Last Admin: 01/17/19 10:23 Dose: 64 mg Magnesium Hydroxide (Milk Of Magnesia Liq*) 30 ml PO DAILY PRN PRN Reason: CONSTIPATION Ondansetron HCl (Zofran Inj*) 4 mg IV Q6H PRN PRN Reason: NAUSEA Pantoprazole Sodium (Protonix Tab*) 40 mg PO DAILY [facility] Last Admin: 01/17/19 10:23 Dose: 40 mg Vital Signs - 8 hr 01/17/19 01/17/19 01/17/19 07:51 10:57 11:33 Temperature 97.2 F 97.4 F Pulse Rate 60 64 Respiratory 20 20 24 Rate Blood Pressure 149/89 194/106 (mmHg) O2 Sat by Pulse 95 95 Oximetry 01/17/19 12:16 Temperature Pulse Rate Respiratory Rate Blood Pressure 174/80 (mmHg) O2 Sat by Pulse Oximetry Oxygen Devices in Use Now: None Appearance: alert, NAD Eyes: PERRLA Ears/Nose/Mouth/Throat: Mucous Membranes Moist Neck: NL Appearance and Movements; NL JVP, Trachea Midline Respiratory: Symmetrical Chest Expansion and Respiratory Effort, Clear to Auscultation Cardiovascular: NL Sounds; No Murmurs; No JVD, RRR, No Edema Abdominal: NL Sounds; No Tenderness; No Distention Extremities: No Edema, No Clubbing, Cyanosis Skin: No Rash or Ulcers Neurological: Alert and Oriented x 3, NL Sensation, NL Gait Nutrition: Taking PO's Result Diagrams: 01/16/19 06:39 01/17/19 08:05 Microbiology and Other Data: Microbiology 01/15/19 17:42 Aerobic Blood Culture - Preliminary Blood Venous No Growth Day 1 Anaerobic Blood Culture - Preliminary No Growth Day 1 01/15/19 17:55 Nasal Screen MRSA (PCR) - Final Nasal Mrsa Not Detected 01/14/19 21:55 Urine Culture - Final Urine No Growth (<1,000 CFU/mL) Diagnostic Imaging: Patient Name: RYLAND YBARRA Medical Record#: [id number] Ordering Physician: Mendez PARMAR Acct.#: [id number] : 1960 Age: 58 Sex: M Location: [address] [place] [address] - MEDICAL Exam Date: 01/15/19 1349 ADM Status: ADM Moon Order Information: MRI BRAIN W/O Accession Number: [id number] CPT: 98119 Indication: Possible stroke on CT. Sagittal and axial T1, axial T2, FLAIR, diffusion and susceptibility weighted images of the brain were obtained. Correlation is made with a CT scan done earlier the same day. Ventricular structures are midline. No midline shift is noted. Central and cortical atrophy is noted. Encephalomalacia in the left cerebellum is noted. No restriction of diffusion is noted in the left cerebellum. This likely represents atrophy. In the right posterior occipital lobe there is likely gliosis noted. There are however 2 small lacunar infarcts in the right isthmus corpus callosum. These demonstrates restriction of diffusion and decreased signal on the ADC map. Susceptibility weighted images demonstrates no definite hemosiderin. The T2 weighted images demonstrates increased signal in the right occipital lobe area. IMPRESSION: Likely old right occipital lobe infarct and left cerebellar infarct. There are 2 small foci of restriction of diffusion in the isthmus of the corpus callosum on the DWI images with decreased signal on the ADC map suggestive of lacunar infarct. Assess/Plan/Problems-Billing Assessment: This is a 58 year old male with hx of TBI and CVA, unclear psychiatric history and hx of amphetamine abuse that presented to ER with police and EMS for acute confusion and hallucinations. - Patient Problems (1) Hallucination Code(s): R44.3 - HALLUCINATIONS, UNSPECIFIED SNOMED Code(s): 7414474 Comment: - Psychiatry consulted, recommends abilify and naltrexone, no Vyvanse - DC MH obs, patient is appropriate (2) CVA (cerebral vascular accident) Code(s): I63.9 - CEREBRAL INFARCTION, UNSPECIFIED SNOMED Code(s): 406846235 Comment: - Old infarct and encephalomalacia on MRI with possible new lacunar infarcts - Neurology following - Pending ECHO - Cancel swallow eval, patient was NPO for test only and exhibits no dysphagia - Continue low dose ASA and plavix (3) Diabetes Code(s): E11.9 - TYPE 2 DIABETES MELLITUS WITHOUT COMPLICATIONS SNOMED Code(s) : 40427595 Comment: - With hyperglycemia and electrolyte disturbance at admission now improved - Accuchecks with ISS ACHS (4) HTN (hypertension) Code(s): I10 - ESSENTIAL (PRIMARY) HYPERTENSION SNOMED Code(s): 72687780 Comment: - Stable on norvasc and clonidine (5) Hypothyroid Code(s): E03.9 - HYPOTHYROIDISM, UNSPECIFIED SNOMED Code(s): 77634379 Comment: - continue synthroid (6) Full code status Code(s): Z78.9 - OTHER SPECIFIED HEALTH STATUS SNOMED Code(s): 165852116 Status and Disposition: Inpatient. Dispo TBD, patient cannot return to [facility] as per SW. Need safe discharge plan.
[2019-01-17] MEDS: Naltrexone TAB* 50 MG TAB PO SCH (13:21)
[2019-01-17] MEDS: NS 0.9% 1000 ML** 1,000 ML IV SCH (14:08)
--- NOTE | 2019-01-17 14:13 | PN ---
Subjective Date of Service: 01/17/19 Length of Stay: 2 Days Neurology is following for episode of visual hallucination and abnormal MRI. Interval History: The patient was seen by Dr. Coker on 01/16/2019. He presented with hallucination that was thought to be drug induced. His MRI showed 2 small areas of restricted diffusion in splenium of the the corpus callosum. Today, the patient stated that he never had any hallucination. He is not sure why he is hospitalized in the first place. He has history of multiple head trauma include multifocal infarcts. He currently denied any focal weakness or paresthesia. He denied any headache. He was taking Vyvanse which has been stopped since the hospitalization. MRI brain without contrast 01/15 reviewed. There is old right occipital lobe and left cerebellar ischemic infarct. There are 2 small areas of restricted diffusion but no correlative ADC mapping. This may suggest T2 shine through or a subacute infarct. CTA head and neck: no evidence of intra or extra cranial stenosis. Review of Systems: Denied CP, SOB, or palpitations. Objective Active Medications: Acetaminophen (Tylenol Tab*) 650 mg PO Q6H PRN PRN Reason: FEVER/PAIN Albuterol (Ventolin 2.5 Mg/3 Ml Neb.Colette*) 2.5 mg INH Q4H PRN PRN Reason: SOB/WHEEZING Amlodipine Besylate (Norvasc Tab*) 10 mg PO DAILY [facility] Last Admin: 01/17/19 10:23 Dose: 10 mg Aripiprazole (Abilify Tab*) 5 mg PO BEDTIME [facility] Atenolol (Tenormin Tab*) 100 mg PO BID [facility] Last Admin: 01/17/19 10:23 Dose: 100 mg Atorvastatin Calcium (Lipitor*) 40 mg PO 2100 [facility] Last Admin: 01/16/19 21:11 Dose: 40 mg Clonidine HCl (Catapres Tab*) 0.1 mg PO 0900,2100 [facility] Last Admin: 01/17/19 10:23 Dose: 0.1 mg Clopidogrel Bisulfate (Plavix Tab*) 75 mg PO DAILY [facility] Last Admin: 01/17/19 10:23 Dose: 75 mg Dextrose (D50w Syringe 50 Ml*) 12.5 gm IV PUSH .FOR FS < 60 - SS PRN PRN Reason: FS < 60 Duloxetine HCl (Cymbalta Cap*) 60 mg PO DAILY [facility] Last Admin: 01/17/19 10:23 Dose: 60 mg Heparin Sodium (Porcine) (Heparin Vial(*)) 5,000 units SUBCUT Q8HR [facility] Last Admin: 01/17/19 13:21 Dose: 5,000 units Sodium Chloride (Ns 0.9% 1000 Ml) 1,000 mls @ 75 mls/hr IV PER RATE [facility] Last Admin: 01/16/19 21:45 Dose: 75 mls/hr Insulin Glargine (Lantus(*)) 20 units SUBCUT Q24H [facility] Last Admin: 01/17/19 05:17 Dose: 20 units Insulin Human Lispro (Humalog*) 0 units SUBCUT Q6HR [facility]; Protocol Last Admin: 01/17/19 13:20 Dose: 4 units Levothyroxine Sodium (Synthroid Tab*) 50 mcg PO DAILY@0600 [facility] Last Admin: 01/17/19 05:18 Dose: 50 mcg Magnesium Chloride (Slow Mag Ec Tab*) 64 mg PO BID [facility] Last Admin: 01/17/19 10:23 Dose: 64 mg Magnesium Hydroxide (Milk Of Magnesia Liq*) 30 ml PO DAILY PRN PRN Reason: CONSTIPATION Naltrexone HCl (Naltrexone Tab*) 50 mg PO DAILY [facility]; Protocol Last Admin: 01/17/19 13:21 Dose: 50 mg Ondansetron HCl (Zofran Inj*) 4 mg IV Q6H PRN PRN Reason: NAUSEA Pantoprazole Sodium (Protonix Tab*) 40 mg PO DAILY [facility] Last Admin: 01/17/19 10:23 Dose: 40 mg Vital Signs 01/16/19 01/16/19 01/16/19 14:49 19:30 20:00 Temperature 97.1 F 97.1 F Pulse Rate 78 69 Respiratory 24 18 18 Rate Blood Pressure 144/76 151/90 (mmHg) O2 Sat by Pulse 93 95 Oximetry 01/16/19 01/17/19 01/17/19 23:08 03:24 03:38 Temperature 98.1 F 98.0 F 98 F Pulse Rate 65 55 55 Respiratory 18 18 18 Rate Blood Pressure 161/98 152/87 152/87 (mmHg) O2 Sat by Pulse 99 94 94 Oximetry 01/17/19 01/17/19 01/17/19 07:51 10:57 11:33 Temperature 97.2 F 97.4 F Pulse Rate 60 64 Respiratory 20 20 24 Rate Blood Pressure 149/89 194/106 (mmHg) O2 Sat by Pulse 95 95 Oximetry 01/17/19 12:16 Temperature Pulse Rate Respiratory Rate Blood Pressure 174/80 (mmHg) O2 Sat by Pulse Oximetry Intake and Output Last 24 Hours 01/15/19 01/16/19 01/17/19 01/18/19 06:59 06:59 06:59 07:59 Intake Total 1999 999 1999 2948 Output Total 201 Balance 1999 999 1799 2948 Weight 240 lb 257 lb 8 oz 257 lb Intake: IV Fluids 1999 999 2666 NS (0.9%) 2666 IVPB 52 magnesium sulfate 52 Oral 1999 230 Output: Urine 200 Straight Cath 1 Other: Estimated Void Large # Bowel Movements 0 Estimated Stool Amount Medium # Voids 1 Oxygen Devices in Use Now: None Neurology Exam: General: well nourished, well developed. Alert, cooperative, no apparent distress. HEENT: normocephalic, without obvious abnormality. Conjunctivae/corneas clear. Lungs: non-labored respirations with no wheezing or rhonchi CV: regular rate and rhythm, radial pulses 2+ symmetric. Psych: affect is flat. He has rapid impulsive but appropriate movement but he got out of bed quickly when asked to stand. Neurological examination: Mental status: awake; alert and oriented to person, place, time, & general circumstances. Normal speech and language. Cranial nerves: PERRL, EOM-I, no facial asymmetry. Motor (R/L): no abnormal movements, no pronator drift. Normal tone. Strength ( R/L): 5/5 bilaterally. Reflexes: symmetric 2+ throughout. Sensation is intact to light touch throughout. Coordination: normal finger to nose and rapid alternating movements. Gait & Station: narrow based; normal stance and gait. No ataxia. Result Diagrams: 01/16/19 06:39 01/17/19 08:05 Microbiology and Other Data: Microbiology 01/15/19 17:42 Aerobic Blood Culture - Preliminary Blood Venous No Growth Day 1 Anaerobic Blood Culture - Preliminary No Growth Day 1 01/15/19 17:55 Nasal Screen MRSA (PCR) - Final Nasal Mrsa Not Detected 01/14/19 21:55 Urine Culture - Final Urine No Growth (<1,000 CFU/mL) Diagnostic Imaging: Patient Name: RYLAND YBARRA Medical Record#: [id number] Ordering Physician: Mendez PARMAR Acct.#: [id number] : 1960 Age: 58 Sex: M Location: [address] [place] [address] MEDICAL Exam Date: 01/15/19 134 ADM Status: ADM Moon Order Information: MRI BRAIN W/O Accession Number: [id number] CPT: 43241 Indication: Possible stroke on CT. Sagittal and axial T1, axial T2, FLAIR, diffusion and susceptibility weighted images of the brain were obtained. Correlation is made with a CT scan done earlier the same day. Ventricular structures are midline. No midline shift is noted. Central and cortical atrophy is noted. Encephalomalacia in the left cerebellum is noted. No restriction of diffusion is noted in the left cerebellum. This likely represents atrophy. In the right posterior occipital lobe there is likely gliosis noted. There are however 2 small lacunar infarcts in the right isthmus corpus callosum. These demonstrates restriction of diffusion and decreased signal on the ADC map. Susceptibility weighted images demonstrates no definite hemosiderin. The T2 weighted images demonstrates increased signal in the right occipital lobe area. IMPRESSION: Likely old right occipital lobe infarct and left cerebellar infarct. There are 2 small foci of restriction of diffusion in the isthmus of the corpus callosum on the DWI images with decreased signal on the ADC map suggestive of lacunar infarct. Assessment/Plan 1. Drug induced Hallucination- seems to have resolved. He denied any visual or auditory hallucination today. He is off Vyvanse. 2. Abnormal MRI suggestive of T2 shine through. I am not convinced he had an acute stroke, especially since he is asymptomatic. 3. Remote history of multifocal infarction- appropriate to continue aspirin and Plavix for 30 days, then continue Plavix 75 mg monotherapy. CTA head showed no evidence of large vessel occlusion. Continue statin therapy. Secondary stroke prevention is maximized. He needs better glucose monitoring and control. If echo is abnormal (i.e., large ventricular, atrial thrombus, or PFO), please contact us for further recommendation. There is no further neurological recommendation at this time. I will sign off. We are available for any questions or concerns.
[2019-01-17] MEDS: Atorvastatin* 40 MG TAB PO SCH (21:05)
[2019-01-17] MEDS: ARIPiprazole TAB* 5 MG PO SCH (21:05)
[2019-01-18] MEDS: NS 0.9% 1000 ML** 1,000 ML IV SCH (04:00)
[2019-01-18] MEDS: Heparin VIAL(*) 5000 UNITS/ML VIAL (FIVE THOUSAND) SUBCUT SCH ×3 (06:49→22:02)
[2019-01-18] MEDS: Levothyroxine TAB* 50 MCG TAB PO SCH (06:50)
[2019-01-18] MEDS: Insulin GLARGINE(*) 1 UNITS UNIT SUBCUT SCH (08:32)
[2019-01-18] MEDS: Clopidogrel TAB* 75 MG PO SCH (08:45)
[2019-01-18] MEDS: Naltrexone TAB* 50 MG TAB PO SCH (08:45)
[2019-01-18] MEDS: Magnesium Chloride EC TAB* 64 MG PO SCH ×2 (08:45→22:00)
[2019-01-18] MEDS: DULoxetine DR CAP* 60 MG CAP.DR PO SCH (08:45)
[2019-01-18] MEDS: Pantoprazole TAB * 40 MG TAB PO SCH (08:46)
[2019-01-18] MEDS: amLODIPine TAB* 5 MG PO SCH (08:46)
[2019-01-18] MEDS: cloNIDine TAB* 0.1 MG PO SCH ×3 (08:46→21:59)
[2019-01-18] MEDS: Atenolol TAB* 50 MG PO SCH ×2 (08:46→21:58)
[2019-01-18] MEDS: Insulin LISPRO* 1 UNITS UNIT SUBCUT SCH ×4 (08:47→21:47)
[2019-01-18] MEDS ORDERED: Insulin GLARGINE(*) 1 UNITS UNIT SUBCUT SCH (09:00)
--- NOTE | 2019-01-18 10:07 | PN ---
Subjective Date of Service: 01/18/19 Interval History: Mr. Goncalves is feeling fine this morning. He offers no complaints except for missing his children. He is tired this morning and not particularly interested in waking up and speaking with me. He denies CP, SOB, N/V. Does not feel confused at all. Family History: Unchanged from Admission Social History: Unchanged from Admission Past Medical History: Unchanged from Admission Objective Active Medications: Acetaminophen (Tylenol Tab*) 650 mg PO Q6H PRN FEVER/PAIN Albuterol (Ventolin 2.5 Mg/3 Ml Neb.Colette*) 2.5 mg INH Q4H PRN SOB/WHEEZING Amlodipine Besylate (Norvasc Tab*) 10 mg PO DAILY [facility] Aripiprazole (Abilify Tab*) 5 mg PO BEDTIME [facility] Atenolol (Tenormin Tab*) 100 mg PO BID [facility] Atorvastatin Calcium (Lipitor*) 40 mg PO 2100 [facility] Clonidine HCl (Catapres Tab*) 0.1 mg PO 0900,2100 [facility] Clopidogrel Bisulfate (Plavix Tab*) 75 mg PO DAILY [facility] Dextrose (D50w Syringe 50 Ml*) 12.5 gm IV PUSH .FOR FS < 60 - SS PRN FS < 60 Duloxetine HCl (Cymbalta Cap*) 60 mg PO DAILY [facility] Heparin Sodium (Porcine) (Heparin Vial(*)) 5,000 units SUBCUT Q8HR [facility] Insulin Glargine (Lantus(*)) 20 units SUBCUT QAM [facility] Insulin Human Lispro (Humalog*) 0 units SUBCUT ACHS [facility]; Protocol Levothyroxine Sodium (Synthroid Tab*) 50 mcg PO DAILY@0600 [facility] Magnesium Chloride (Slow Mag Ec Tab*) 64 mg PO BID [facility] Magnesium Hydroxide (Milk Of Magnesia Liq*) 30 ml PO DAILY PRN CONSTIPATION Naltrexone HCl (Naltrexone Tab*) 50 mg PO DAILY [facility]; Protocol Ondansetron HCl (Zofran Inj*) 4 mg IV Q6H PRN NAUSEA Pantoprazole Sodium (Protonix Tab*) 40 mg PO DAILY [facility] Vital Signs - 8 hr 01/18/19 01/18/19 01/18/19 03:46 04:35 06:53 Temperature 98.5 F 97.8 F Pulse Rate 65 61 Respiratory 16 18 Rate Blood Pressure 174/108 150/92 187/103 (mmHg) O2 Sat by Pulse 96 93 Oximetry 03/10/19 03/10/19 09:05 09:28 Temperature Pulse Rate Respiratory 18 Rate Blood Pressure 154/72 (mmHg) O2 Sat by Pulse Oximetry Oxygen Devices in Use Now: None Appearance: Middle aged male laying in bed in NAD Eyes: No Scleral Icterus Ears/Nose/Mouth/Throat: Mucous Membranes Moist Neck: NL Appearance and Movements; NL JVP, Trachea Midline Respiratory: Symmetrical Chest Expansion and Respiratory Effort, Clear to Auscultation Cardiovascular: NL Sounds; No Murmurs; No JVD, RRR Abdominal: NL Sounds; No Tenderness; No Distention Extremities: No Edema Skin: No Rash or Ulcers Neurological: Alert and Oriented x 3 Lines/Tubes/Other Access: Clean, Dry and Intact Peripheral IV Nutrition: Taking PO's Result Diagrams: 01/16/19 06:39 01/17/19 08:05 Assess/Plan/Problems-Billing Assessment: Mr. Goncalves is a 58 yo M with PMH of TBI, CVA, unknown psychiatric disorders, and amphetamine abuse who was brought into the emergency room by police for acute confusion and hallucinations. - Patient Problems (1) History of CVA (cerebrovascular accident) Code(s): Z86.73 - PRSNL HX OF TIA (TIA), AND CEREB INFRC W/O RESID DEFICITS Comment: - Old infarct and encephalomalacia on MRI with possible new lacunar infarcts - Neurology following; does not believe this represents an acute CVA - Echo pending - Continue aspirin and Plavix dual antiplatelet therapy for 30 days, then Plavix monotherapy (2) HTN (hypertension) Code(s): I10 - ESSENTIAL (PRIMARY) HYPERTENSION Comment: - Remains hypertensie, especially in the AM - Continue amlodipine, atenolol; increase clonidine to 0.2mg TID (3) Diabetes Code(s): E11.9 - TYPE 2 DIABETES MELLITUS WITHOUT COMPLICATIONS Comment: - With hyperglycemia and electrolyte disturbance at admission now improved, but BG still up into the 200s - Continue Lispro SS; increase Lantus to 25 units (4) Hallucination Code(s): R44.3 - HALLUCINATIONS, UNSPECIFIED Comment: - Resolved - Psychiatry consulted; felt this was medication-related, recommends abilify and naltrexone, no Vyvanse (5) Hypothyroid Code(s): E03.9 - HYPOTHYROIDISM, UNSPECIFIED Comment: - Continue levothyroxine (6) DVT prophylaxis Comment: - Heparin SQ (7) Full code status Code(s): Z78.9 - OTHER SPECIFIED HEALTH STATUS Comment: Status and Disposition: Inpatient. Patient cannot return to [facility] as per SW. Need safe discharge plan. Attending: Estela Rosado
[2019-01-18] MEDS ORDERED: Insulin GLARGINE(*) 1 UNITS UNIT SUBCUT ONE (10:09)
--- NOTE | 2019-01-18 12:43 | ECHO ---
Amended Report Patient: RYLAND YBARRA [employer] Rec#: [id number] : 1960 Date: 01/18/2019 Age: 58y Height: 173 cm / 68.1 in Weight: 117 kg / 257.9 lbs Sex: M BSA: 2.28 Room#: 404 Admit Date#: 01/16/2019 Type: Inpatient Referring: Jose Coker MD Reading: Eliseo Song MD Director Of Compensation: [facility] Tran[facility]hor[facility] Echocardiogram Indication: CVA BP: 150/92 HR: 79 Rhythm: NSR Findings History: DM, recent CVA, TBI, HTN, HLD, substance abuse, ETOH use. Technical Comments: The study quality is fair. Completed at 1045. Left Ventricle: The left ventricular chamber size is normal. Mild concentric left ventricular hypertrophy is observed. There is normal left ventricular systolic function. The estimated ejection fraction is 55-60%. closer to 55%. There is septal flattening of the interventricular septum consistent with right ventricular volume or pressure overload. Abnormal left ventricular diastolic function is observed. The left ventricular diastolic filling pattern is restrictive. Left Atrium: The left atrium is moderately dilated. Right Ventricle: The right ventricle wall thickness is mildly increased.8 mm. The right ventricle is moderately dilated. The right ventricular global systolic function is low normal. Right Atrium: The right atrium is moderately dilated. Aortic Valve: The aortic valve is trileaflet. The aortic valve leaflets are mildly thickened. There is moderate thickening of the left coronary cusp. There is evidence of aortic sclerosis without stenosis. There is a trace of aortic regurgitation. There is no evidence of aortic stenosis. Mitral Valve: The mitral valve leaflets are mildly thickened. There is mild mitral regurgitation. There is no evidence of mitral stenosis. Tricuspid Valve: The tricuspid valve leaflets are normal. There is mild tricuspid regurgitation. The right ventricular systolic pressure is estimated at 33 mmHg. There is evidence that pulmonary hypertension may be underestimated. There is no tricuspid stenosis. Pulmonic Valve: The pulmonic valve appears normal. There is a trace pulmonic regurgitation. There is no pulmonic stenosis. Pericardium: There is no significant pericardial effusion. A pericardial fat pad is visualized. Aorta: There is mild dilatation of the ascending aorta. There is mild dilatation of the aortic arch. The aortic root is normal in size. Pulmonary Artery: The main pulmonary artery appears normal. Venous: The inferior vena cava is dilated. There is an approximate 50% respiratory change in the inferior vena cava dimension. Summary: There was not any prior study for comparison. Conclusions Mild concentric left ventricular hypertrophy is observed. There is normal left ventricular systolic function. The estimated ejection fraction is 55-60%, closer to 55%. There is mild septal flattening of the interventricular septum consistent with right ventricular volume or pressure overload. Abnormal left ventricular diastolic function is observed. The left ventricular diastolic filling pattern is restrictive. The left atrium is moderately dilated. The right ventricle wall thickness is mildly increased.8 mm. The right ventricle is moderately dilated. The right ventricular global systolic function is low normal. The right atrium is moderately dilated. The aortic valve leaflets are mildly thickened. There is mild mitral regurgitation. There is mild tricuspid regurgitation. The right ventricular systolic pressure is estimated at 33 mmHg. There is mild dilatation of the ascending aorta. There is mild dilatation of the aortic arch. Cannot exclude a small PFO. IF clinically indicated, consider further evaluation for a cardioembolic source with a ALEXA. Measurements Name Value Normal Range RVIDd (AP) 2D 3.7 cm (0.9 - 2.6) RVDdMajor (2D) 5.4 cm (2.2 - 4.4) RAd ISD 4CH 6 cm (3.4 - 4.9) RA (A4C)W 6 cm (2.9 - 4.6) IVSd (2D) 1.1 cm (0.6 - 1) LVPWd (2D) 1.1 cm (0.6 - 1) LVIDd (2D) 5 cm (3.6 - 5.4) LVIDs (2D) 3.9 cm - LV FS (2D) 22 % (25 - 45) Aortic Annulus 2.3 cm (1.4 - 2.6) Ao root diameter (2D) 3.1 cm (2.1 - 3.5) Ascending Ao 4.1 cm (2.1 - 3.4) Aortic arch 3.5 cm (1.8 - 3.4) LA dimension (AP) 2D 5.2 cm (2.3 - 3.8) LAd ISD 4CH 6.2 cm (2.9 - 5.3) LA ISD 4CH W 5.6 cm (2.5 - 4.5) Name Value Normal Range LA ESV BP (A/L) index 46 ml/m2 - Name Value Normal Range MV E-wave Vmax 1.2 m/sec - MV deceleration time 176 msec - MV A-wave Vmax 0.6 m/sec - MV E:A ratio 2 ratio - Name Value Normal Range AV Vmax 1.2 m/sec - AV VTI 27 cm - AV peak gradient 5 mmHg - AV mean gradient 2 mmHg - LVOT Vmax 0.8 m/sec - LVOT VTI 18 cm - LVOT peak gradient 3 mmHg - LVOT mean gradient 1 mmHg - HUGO Vmax 0.4 m/sec - Name Value Normal Range TR Vmax 2.1 m/sec - TR peak gradient 18 mmHg - RAP 15 mmHg - RVSP 33 mmHg - IVC diameter 2.8 cm - Name Value Normal Range PV Vmax 0.8 m/sec - PV peak gradient 3 mmHg -
[2019-01-18] MEDS: ARIPiprazole TAB* 5 MG PO SCH (21:58)
[2019-01-18] MEDS: Atorvastatin* 40 MG TAB PO SCH (21:59)
[2019-01-19] MEDS: Levothyroxine TAB* 50 MCG TAB PO SCH (06:26)
[2019-01-19] MEDS: Heparin VIAL(*) 5000 UNITS/ML VIAL (FIVE THOUSAND) SUBCUT SCH ×3 (06:26→22:52)
[2019-01-19] MEDS: Insulin LISPRO* 1 UNITS UNIT SUBCUT SCH ×4 (08:54→22:51)
[2019-01-19] MEDS: amLODIPine TAB* 5 MG PO SCH (08:58)
[2019-01-19] MEDS: cloNIDine TAB* 0.1 MG PO SCH ×3 (08:58→22:53)
[2019-01-19] MEDS: DULoxetine DR CAP* 60 MG CAP.DR PO SCH (08:59)
[2019-01-19] MEDS: Clopidogrel TAB* 75 MG PO SCH (08:59)
[2019-01-19] MEDS: Magnesium Chloride EC TAB* 64 MG PO SCH ×2 (08:59→22:53)
[2019-01-19] MEDS: Pantoprazole TAB * 40 MG TAB PO SCH (09:00)
[2019-01-19] MEDS ORDERED: Insulin GLARGINE(*) 1 UNITS UNIT SUBCUT SCH (09:00)
[2019-01-19] MEDS: Naltrexone TAB* 50 MG TAB PO SCH (09:00)
--- NOTE | 2019-01-19 09:50 | PN ---
Subjective Date of Service: 01/19/19 Interval History: Mr. Goncalves is feeling ok today. He offers no complaints. 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 He is concerned about undergoing additional procedures, but is agreeable. He denies CP, SOB, N/V. Family History: Unchanged from Admission Social History: Unchanged from Admission Past Medical History: Unchanged from Admission Objective Active Medications: Acetaminophen (Tylenol Tab*) 650 mg PO Q6H PRN FEVER/PAIN Albuterol (Ventolin 2.5 Mg/3 Ml Neb.Colette*) 2.5 mg INH Q4H PRN SOB/WHEEZING Amlodipine Besylate (Norvasc Tab*) 10 mg PO DAILY [facility] Aripiprazole (Abilify Tab*) 5 mg PO BEDTIME [facility] Atenolol (Tenormin Tab*) 100 mg PO BID [facility] Atorvastatin Calcium (Lipitor*) 40 mg PO 2100 [facility] Clonidine HCl (Catapres Tab*) 0.2 mg PO TID [facility] Clopidogrel Bisulfate (Plavix Tab*) 75 mg PO DAILY [facility] Dextrose (D50w Syringe 50 Ml*) 12.5 gm IV PUSH .FOR FS < 60 - SS PRN FS < 60 Duloxetine HCl (Cymbalta Cap*) 60 mg PO DAILY [facility] Heparin Sodium (Porcine) (Heparin Vial(*)) 5,000 units SUBCUT Q8HR [facility] Insulin Glargine (Lantus(*)) 25 units SUBCUT QAM [facility] Insulin Human Lispro (Humalog*) 0 units SUBCUT ACHS [facility]; Protocol Levothyroxine Sodium (Synthroid Tab*) 50 mcg PO DAILY@0600 [facility] Magnesium Chloride (Slow Mag Ec Tab*) 64 mg PO BID [facility] Magnesium Hydroxide (Milk Of Magnesia Liq*) 30 ml PO DAILY [facility]STIP[facility] Naltrexone HCl (Naltrexone Tab*) 50 mg PO DAILY [facility]; Protocol Ondansetron HCl (Zofran Inj*) 4 mg IV Q6H PRN NAUSEA Pantoprazole Sodium (Protonix Tab*) 40 mg PO DAILY [facility] Vital Signs - 8 hr 01/19/19 01/19/19 01/19/19 02:52 04:19 06:49 Temperature 96.8 F 97.3 F Pulse Rate 59 51 47 Respiratory 22 24 22 Rate Blood Pressure 137/78 168/88 (mmHg) O2 Sat by Pulse 93 95 95 Oximetry 01/19/19 01/19/19 08:00 09:28 Temperature Pulse Rate 52 Respiratory 18 Rate Blood Pressure (mmHg) O2 Sat by Pulse Oximetry Oxygen Devices in Use Now: None Appearance: Middle-aged male laying in bed in NAD Eyes: No Scleral Icterus Ears/Nose/Mouth/Throat: Mucous Membranes Moist Neck: NL Appearance and Movements; NL JVP, Trachea Midline Respiratory: Symmetrical Chest Expansion and Respiratory Effort, Clear to Auscultation Cardiovascular: NL Sounds; No Murmurs; No JVD, RRR Abdominal: NL Sounds; No Tenderness; No Distention Extremities: No Edema Skin: No Rash or Ulcers Neurological: Alert and Oriented x 3 Lines/Tubes/Other Access: Clean, Dry and Intact Peripheral IV Nutrition: Taking PO's Result Diagrams: 01/16/19 06:39 01/17/19 08:05 Assess/Plan/Problems-Billing Assessment: Mr. Goncalves is a 58 yo M with PMH of TBI, CVA, unknown psychiatric disorders, and amphetamine abuse who was brought into the emergency room by police for acute confusion and hallucinations with concern for CVA. - Patient Problems (1) History of CVA (cerebrovascular accident) Code(s): Z86.73 - PRSNL HX OF TIA (TIA), AND CEREB INFRC W/O RESID DEFICITS Comment: - Asymptomatic - Old infarct and encephalomalacia on MRI with possible new lacunar infarcts - Neurology following; does not believe this represents an acute CVA - TTE could not exclude small PFO; spoke with Dr. Coker who advises there is no need for ALEXA at this point and recommends continuing current antiplatelet therapy - Will need outpt f/u with Neurology in 2-4 weeks - Continue atorvastatin, aspirin and Plavix dual antiplatelet therapy for 30 days, then Plavix monotherapy (2) HTN (hypertension) Code(s): I10 - ESSENTIAL (PRIMARY) HYPERTENSION Comment: - BP well controlled overnight with increased clonidine, but elevated again this morning - Will hold off on further dose increases at this point d/t lability - Continue amlodipine, atenolol (added hold parameters), clonidine (3) Diabetes Code(s): E11.9 - TYPE 2 DIABETES MELLITUS WITHOUT COMPLICATIONS Comment: - With hyperglycemia and electrolyte disturbance at admission now improved, but BG still up into the 200s - A1c 10.1% - Fasting BG improved this morning after increase in Lantus yesterday - Continue Lispro SS; increase Lantus to 30 units (4) Hallucination Code(s): R44.3 - HALLUCINATIONS, UNSPECIFIED Comment: - Resolved - Psychiatry consulted; felt this was medication-related, possibly Vyvanse; recommends naltrexone for picking - Continue Abilify and naltrexone per Psych recommendations (5) Hypothyroid Code(s): E03.9 - HYPOTHYROIDISM, UNSPECIFIED Comment: - Continue levothyroxine (6) DVT prophylaxis Comment: - Heparin SQ (7) Full code status Code(s): Z78.9 - OTHER SPECIFIED HEALTH STATUS Comment: Status and Disposition: Inpatient. ALEXA tomorrow. Patient cannot return to [facility] as per SW. Need safe discharge plan. Attending: Estela Rosado
[2019-01-19] MEDS: Atenolol TAB* 50 MG PO SCH ×2 (10:20→22:52)
[2019-01-19] MEDS: Atorvastatin* 40 MG TAB PO SCH (22:53)
[2019-01-19] MEDS: ARIPiprazole TAB* 5 MG PO SCH (22:53)
[2019-01-20] MEDS: Levothyroxine TAB* 50 MCG TAB PO SCH (05:53)
[2019-01-20] MEDS: Heparin VIAL(*) 5000 UNITS/ML VIAL (FIVE THOUSAND) SUBCUT SCH ×3 (05:54→21:41)
[2019-01-20 06:31] LABS: BUN/Creatinine Ratio 11.5 (8-20); Calcium 8.2 mg/dL (8.6-10.3); EGFR Non-African American 80.2 (>60); Magnesium 1.6 mg/dL (1.9-2.7); Potassium 3.9 mmol/L (3.5-5.0)
[2019-01-20] MEDS: Atenolol TAB* 50 MG PO SCH ×2 (08:27→21:52)
[2019-01-20] MEDS: Clopidogrel TAB* 75 MG PO SCH (08:38)
[2019-01-20] MEDS: Naltrexone TAB* 50 MG TAB PO SCH (08:38)
[2019-01-20] MEDS: Magnesium Chloride EC TAB* 64 MG PO SCH ×2 (08:38→21:38)
[2019-01-20] MEDS: Pantoprazole TAB * 40 MG TAB PO SCH (08:39)
[2019-01-20] MEDS: cloNIDine TAB* 0.1 MG PO SCH ×3 (08:39→23:28)
[2019-01-20] MEDS: DULoxetine DR CAP* 60 MG CAP.DR PO SCH (08:39)
[2019-01-20] MEDS: amLODIPine TAB* 5 MG PO SCH (08:39)
[2019-01-20] MEDS: Insulin GLARGINE(*) 1 UNITS UNIT SUBCUT SCH (08:41)
[2019-01-20] MEDS: Insulin LISPRO* 1 UNITS UNIT SUBCUT SCH ×4 (08:41→21:39)
[2019-01-20] MEDS: Lisinopril TAB* 10 MG PO SCH (12:31)
--- NOTE | 2019-01-20 15:31 | PN ---
Subjective Date of Service: 01/20/19 Interval History: Mr. Goncalves is feeling ok today. He offers no complaints. He is anxious to return home. He denies CP, SOB, N/V. Appetite is good. Nursing reports that the pt does not know why he is taking insulin and would not be able to manage his own medications. Family History: Unchanged from Admission Social History: Unchanged from Admission Past Medical History: Unchanged from Admission Objective Active Medications: Acetaminophen (Tylenol Tab*) 650 mg PO Q6H PRN FEVER/PAIN Albuterol (Ventolin 2.5 Mg/3 Ml Neb.Colette*) 2.5 mg INH Q4H PRN SOB/WHEEZING Amlodipine Besylate (Norvasc Tab*) 10 mg PO DAILY [facility] Aripiprazole (Abilify Tab*) 5 mg PO BEDTIME [facility] Atenolol (Tenormin Tab*) 100 mg PO BID [facility] Atorvastatin Calcium (Lipitor*) 40 mg PO 2100 [facility] Clonidine HCl (Catapres Tab*) 0.2 mg PO TID [facility] Clopidogrel Bisulfate (Plavix Tab*) [address] [facility] Dextrose (D50w Syringe 50 Ml*) 12.5 gm IV PUSH .FOR FS < 60 - SS PRN FS < 60 Duloxetine HCl (Cymbalta Cap*) [address] [facility] Heparin Sodium (Porcine) (Heparin Vial(*)) 5,[address] [facility] Insulin Glargine (Lantus(*)) [address] [facility] Insulin Human Lispro (Humalog*) [address] [facility]; Protocol Levothyroxine Sodium (Synthroid Tab*) 50 mcg PO DAILY@0600 [facility] Lisinopril (Prinivil Tab*) [address] [facility] Magnesium Chloride (Slow Mag Ec Tab*) 64 mg PO BID [facility] Magnesium Hydroxide (Milk Of Magnesia Liq*) 30 ml PO DAILY PRN CONSTIPATION Naltrexone HCl (Naltrexone Tab*) [address] [facility]; Protocol Ondansetron HCl (Zofran Inj*) 4 mg IV Q6H PRN NAUSEA Pantoprazole Sodium (Protonix Tab*) [address] [facility] Vital Signs - 8 hr 01/20/19 01/20/19 01/20/19 08:00 08:19 11:11 Temperature 97.4 F 98.0 F Pulse Rate 47 49 Respiratory 18 18 20 Rate Blood Pressure 158/75 167/99 (mmHg) O2 Sat by Pulse 98 95 Oximetry 01/20/19 15:19 Temperature 98.1 F Pulse Rate 51 Respiratory 20 Rate Blood Pressure 164/92 (mmHg) O2 Sat by Pulse 97 Oximetry Oxygen Devices in Use Now: None Appearance: Middle-aged male laying in bed in NAD Eyes: No Scleral Icterus Ears/Nose/Mouth/Throat: Mucous Membranes Moist Neck: NL Appearance and Movements; NL JVP, Trachea Midline Respiratory: Symmetrical Chest Expansion and Respiratory Effort, Clear to Auscultation Cardiovascular: NL Sounds; No Murmurs; No JVD, RRR Abdominal: NL Sounds; No Tenderness; No Distention Extremities: No Edema Neurological: Alert and Oriented x 3 Lines/Tubes/Other Access: Clean, Dry and Intact Peripheral IV Nutrition: Taking PO's Result Diagrams: 01/16/19 06:39 01/20/19 05:12 Assess/Plan/Problems-Billing Assessment: Mr. Goncalves is a 58 yo M with PMH of TBI, CVA, unknown psychiatric disorders, and amphetamine abuse who was brought into the emergency room by police for acute confusion and hallucinations with concern for CVA. - Patient Problems (1) History of CVA (cerebrovascular accident) Code(s): Z86.73 - PRSNL HX OF TIA (TIA), AND CEREB INFRC W/O RESID DEFICITS Comment: - Asymptomatic - Old infarct and encephalomalacia on MRI with possible new lacunar infarcts - Neurology following; does not believe this represents an acute CVA - TTE could not exclude small PFO; spoke with Dr. Coker who advises there is no need for ALEXA at this point and recommends continuing current antiplatelet therapy - Will need outpt f/u with Neurology in 2-4 weeks - Continue atorvastatin, aspirin and Plavix dual antiplatelet therapy for 30 days, then Plavix monotherapy (2) HTN (hypertension) Code(s): I10 - ESSENTIAL (PRIMARY) HYPERTENSION Comment: - Hypertensive, SBP 160s - Atenolol has been held recently d/t bradycardia - EKG shows sinus bradycardia - Continue amlodipine, atenolol (with hold parameters), clonidine; start lisinopril - Anticipate he will need further dose increases tomorrow (3) Diabetes Code(s): E11.9 - TYPE 2 DIABETES MELLITUS WITHOUT COMPLICATIONS Comment: - With hyperglycemia and electrolyte disturbance at admission now improved, but BG still up into the 200s - A1c 10.1% - Continue Lispro SS, Lantus (4) Hallucination Code(s): R44.3 - HALLUCINATIONS, UNSPECIFIED Comment: - Resolved - Psychiatry consulted; felt this was medication-related, possibly Vyvanse; recommends naltrexone for picking - Continue Abilify and naltrexone per Psych recommendations (5) Hypothyroid Code(s): E03.9 - HYPOTHYROIDISM, UNSPECIFIED Comment: - Continue levothyroxine (6) DVT prophylaxis Comment: - Heparin SQ (7) Full code status Code(s): Z78.9 - OTHER SPECIFIED HEALTH STATUS Comment: Status and Disposition: Inpatient. Patient cannot return to [facility] as per . Need safe discharge plan as he will not be able to manage his own medications. [facility] care. Attending: Nuris Morrow
[2019-01-20] MEDS: ARIPiprazole TAB* 5 MG PO SCH (21:38)
[2019-01-20] MEDS: Atorvastatin* 40 MG TAB PO SCH (21:38)
[2019-01-21] MEDS: Levothyroxine TAB* 50 MCG TAB PO SCH (05:45)
[2019-01-21] MEDS: Heparin VIAL(*) 5000 UNITS/ML VIAL (FIVE THOUSAND) SUBCUT SCH ×3 (05:45→21:26)
[2019-01-21 09:17] LABS: BUN/Creatinine Ratio 11.6 (8-20); Calcium 8.7 mg/dL (8.6-10.3); EGFR African American 98.2 (>60); EGFR Non-African American 81.1 (>60); Magnesium 1.7 mg/dL (1.9-2.7); Potassium 4.2 mmol/L (3.5-5.0)
[2019-01-21] MEDS: amLODIPine TAB* 5 MG PO SCH (10:46)
[2019-01-21] MEDS: Atenolol TAB* 50 MG PO SCH (10:47)
[2019-01-21] MEDS: Lisinopril TAB* 10 MG PO SCH (10:47)
[2019-01-21] MEDS: Magnesium Chloride EC TAB* 64 MG PO SCH ×2 (10:47→21:27)
[2019-01-21] MEDS: Pantoprazole TAB * 40 MG TAB PO SCH (10:47)
[2019-01-21] MEDS: Clopidogrel TAB* 75 MG PO SCH (10:48)
[2019-01-21] MEDS: Insulin LISPRO* 1 UNITS UNIT SUBCUT SCH ×4 (10:48→21:26)
[2019-01-21] MEDS: cloNIDine TAB* 0.1 MG PO SCH ×3 (10:48→21:27)
[2019-01-21] MEDS: Insulin GLARGINE(*) 1 UNITS UNIT SUBCUT SCH (10:49)
[2019-01-21] MEDS: Naltrexone TAB* 50 MG TAB PO SCH (13:00)
[2019-01-21] MEDS: DULoxetine DR CAP* 60 MG CAP.DR PO SCH (13:00)
[2019-01-21] MEDS ORDERED: Lisinopril TAB* 10 MG PO ONE (13:11)
--- NOTE | 2019-01-21 15:50 | PN ---
Subjective Date of Service: 01/21/19 Interval History: Mr. Goncalves is feeling ok today. He offers no complaints except for feeling tired. He reports that he has been able to manage his medications in the past and he has no concerned r/t managing his own meds at home. He has used insulin in the past, most recently with an insulin pen and this is what he feels comfortable using. He is frustrated that his daughter put him in assisted living because he does not feel as though he needs it. He denies CP, SOB, N/V, dizziness, headache. Family History: Unchanged from Admission Social History: Unchanged from Admission Past Medical History: Unchanged from Admission Objective Active Medications: Acetaminophen (Tylenol Tab*) 650 mg PO Q6H PRN FEVER/PAIN Albuterol (Ventolin 2.5 Mg/3 Ml Neb.Colette*) 2.5 mg INH Q4H PRN SOB/WHEEZING Amlodipine Besylate (Norvasc Tab*) 10 mg PO DAILY [facility] Aripiprazole (Abilify Tab*) 5 mg PO BEDTIME [facility] Atorvastatin Calcium (Lipitor*) 40 mg PO 2100 [facility] Clonidine HCl (Catapres Tab*) 0.2 mg PO TID [facility] Clopidogrel Bisulfate (Plavix Tab*) 75 mg PO DAILY [facility] Dextrose (D50w Syringe 50 Ml*) 12.5 gm IV PUSH .FOR FS < 60 - SS PRN FS < 60 Duloxetine HCl (Cymbalta Cap*) 60 mg PO DAILY [facility] Heparin Sodium (Porcine) (Heparin Vial(*)) 5,000 units SUBCUT Q8HR [facility] Insulin Glargine (Lantus(*)) 30 units SUBCUT QAM [facility] Insulin Human Lispro (Humalog*) 0 units SUBCUT ACHS [facility]; Protocol Levothyroxine Sodium (Synthroid Tab*) 50 mcg PO DAILY@0600 [facility] Lisinopril (Prinivil Tab*) 20 mg PO DAILY [facility] Magnesium Chloride (Slow Mag Ec Tab*) 64 mg PO BID [facility] Magnesium Hydroxide (Milk Of Magnesia Liq*) 30 ml PO DAILY PRN CONSTIPATION Naltrexone HCl (Naltrexone Tab*) 50 mg PO DAILY [facility]; Protocol Ondansetron HCl (Zofran Inj*) 4 mg IV Q6H PRN NAUSEA Pantoprazole Sodium (Protonix Tab*) 40 mg PO DAILY [facility] Vital Signs - 8 hr 0301/21/19 01/21/19 08:00 08:08 09:16 Temperature 97 F Pulse Rate 46 48 Respiratory 18 Rate Blood Pressure 161/90 156/90 (mmHg) O2 Sat by Pulse 99 98 Oximetry 01/21/19 01/21/19 01/21/19 11:45 12:52 14:15 Temperature 96.3 F Pulse Rate 48 49 47 Respiratory 19 16 Rate Blood Pressure 176/102 160/93 150/76 (mmHg) O2 Sat by Pulse 99 95 97 Oximetry Oxygen Devices in Use Now: None Appearance: Middle-aged male laying in bed in NAD Eyes: No Scleral Icterus Ears/Nose/Mouth/Throat: Mucous Membranes Moist Neck: NL Appearance and Movements; NL JVP, Trachea Midline Respiratory: Symmetrical Chest Expansion and Respiratory Effort, Clear to Auscultation Cardiovascular: NL Sounds; No Murmurs; No JVD, RRR Abdominal: NL Sounds; No Tenderness; No Distention Extremities: No Edema Neurological: Alert and Oriented x 3 Lines/Tubes/Other Access: Clean, Dry and Intact Peripheral IV Nutrition: Taking PO's Result Diagrams: 01/16/19 06:39 01/21/19 08:49 Assess/Plan/Problems-Billing Assessment: Mr. Goncalves is a 58 yo M with PMH of TBI, CVA, unknown psychiatric disorders, and amphetamine abuse who was brought into the emergency room by police for acute confusion and hallucinations with concern for CVA. - Patient Problems (1) History of CVA (cerebrovascular accident) Code(s): Z86.73 - PRSNL HX OF TIA (TIA), AND CEREB INFRC W/O RESID DEFICITS Comment: - Asymptomatic - Old infarct and encephalomalacia on MRI with possible new lacunar infarcts - Neurology following; does not believe this represents an acute CVA - TTE could not exclude small PFO; spoke with Dr. Coker who advises there is no need for ALEXA at this point and recommends continuing current antiplatelet therapy - Will need outpt f/u with Neurology in 2-4 weeks - Continue atorvastatin, aspirin and Plavix dual antiplatelet therapy for 30 days, then Plavix monotherapy (2) HTN (hypertension) Code(s): I10 - ESSENTIAL (PRIMARY) HYPERTENSION Comment: - Hypertensive, SBP 160s - EKG shows sinus bradycardia - Continue amlodipine, clonidine; increase lisinopril; d/c atenolol d/t continued bradycardia - Will need close f/u with PCP after d/c (3) Diabetes Code(s): E11.9 - TYPE 2 DIABETES MELLITUS WITHOUT COMPLICATIONS Comment: - With hyperglycemia and electrolyte disturbance at admission now improved, but BG still up into the 200s - A1c 10.1% - Continue Lispro SS, Lantus (4) Hallucination Code(s): R44.3 - HALLUCINATIONS, UNSPECIFIED Comment: - Resolved - Psychiatry consulted; felt this was medication-related, possibly Vyvanse; recommends naltrexone for picking - Continue Abilify and naltrexone per Psych recommendations (5) Hypothyroid Code(s): E03.9 - HYPOTHYROIDISM, UNSPECIFIED Comment: - Continue levothyroxine (6) DVT prophylaxis Comment: - Heparin SQ (7) Full code status Code(s): Z78.9 - OTHER SPECIFIED HEALTH STATUS Comment: Status and Disposition: Inpatient. Patient cannot return to [facility] as per . Need safe discharge plan. Plan was for d/c today to [facility]. [facility], but pt does not have enough money to pay for prescriptions and he cannot be d/c'd without access to necessary medications. Anticipate d/c tomorrow when his sister is able to berry picker his meds and bring in his belongings. Attending: Braxton Richardson
[2019-01-21] MEDS: Atorvastatin* 40 MG TAB PO SCH (21:27)
[2019-01-21] MEDS: ARIPiprazole TAB* 5 MG PO SCH (21:31)
[2019-01-22] MEDS: Heparin VIAL(*) 5000 UNITS/ML VIAL (FIVE THOUSAND) SUBCUT SCH ×3 (05:41→23:32)
[2019-01-22] MEDS: Levothyroxine TAB* 50 MCG TAB PO SCH (05:42)
[2019-01-22] MEDS ORDERED: Lisinopril TAB* 10 MG PO SCH (09:00)
[2019-01-22] MEDS: amLODIPine TAB* 5 MG PO SCH (09:49)
[2019-01-22] MEDS: Insulin LISPRO* 1 UNITS UNIT SUBCUT SCH ×6 (09:49→23:32)
[2019-01-22] MEDS: Clopidogrel TAB* 75 MG PO SCH (09:58)
[2019-01-22] MEDS: Magnesium Chloride EC TAB* 64 MG PO SCH ×2 (09:58→23:31)
[2019-01-22] MEDS: cloNIDine TAB* 0.1 MG PO SCH ×3 (09:58→23:31)
[2019-01-22] MEDS: DULoxetine DR CAP* 60 MG CAP.DR PO SCH (09:58)
[2019-01-22] MEDS: Aspirin 81 mg CHEW TAB* 81 MG TAB.CHEW PO SCH (09:58)
[2019-01-22] MEDS: Insulin GLARGINE(*) 1 UNITS UNIT SUBCUT SCH (09:58)
[2019-01-22] MEDS: Naltrexone TAB* 50 MG TAB PO SCH (10:01)
[2019-01-22] MEDS: Pantoprazole TAB * 40 MG TAB PO SCH (10:01)
[2019-01-22] MEDS: metFORMIN* 500 MG TAB PO SCH (13:13)
--- NOTE | 2019-01-22 13:41 | PN ---
Subjective Date of Service: 01/22/19 Interval History: Patient is alert and oriented today. Complains about a variety of non-medical things including that no one listens to him and that he would prefer to go to [place] due to it being closer to his family. Patient denies F/C, N/V, CP, SOB, Diarrhea, abdominal pain, dysuria. Patient questioned about his knowledge of diabetes and he is able to elucidate a long and complex history of DM treatment and understanding of the use and administration of insulin. Family History: Unchanged from Admission Social History: Unchanged from Admission Past Medical History: Unchanged from Admission Objective Active Medications: Acetaminophen (Tylenol Tab*) 650 mg PO Q6H PRN PRN Reason: FEVER/PAIN Albuterol (Ventolin 2.5 Mg/3 Ml Neb.Colette*) 2.5 mg INH Q4H PRN PRN Reason: SOB/WHEEZING Amlodipine Besylate (Norvasc Tab*) 10 mg PO DAILY [facility] Last Admin: 01/22/19 09:49 Dose: 10 mg Aripiprazole (Abilify Tab*) 5 mg PO BEDTIME [facility] Last Admin: 01/21/19 21:31 Dose: 5 mg Aspirin (Aspirin 81 Mg Chew Tab*) 81 mg PO DAILY [facility] Last Admin: 01/22/19 09:58 Dose: 81 mg Atorvastatin Calcium (Lipitor*) 40 mg PO 2100 [facility] Last Admin: 01/21/19 21:27 Dose: 40 mg Clonidine HCl (Catapres Tab*) 0.2 mg PO TID [facility] Last Admin: 01/22/19 13:13 Dose: 0.2 mg Clopidogrel Bisulfate (Plavix Tab*) 75 mg PO DAILY [facility] Last Admin: 01/22/19 09:58 Dose: 75 mg Dextrose (D50w Syringe 50 Ml*) 12.5 gm IV PUSH .FOR FS < 60 - SS PRN PRN Reason: FS < 60 Duloxetine HCl (Cymbalta Cap*) 60 mg PO DAILY [facility] Last Admin: 01/22/19 09:58 Dose: 60 mg Heparin Sodium (Porcine) (Heparin Vial(*)) 5,000 units SUBCUT Q8HR [facility] Last Admin: 01/22/19 13:13 Dose: 5,000 units Insulin Glargine (Lantus(*)) 30 units SUBCUT QAM [facility] Last Admin: 01/22/19 09:58 Dose: 30 units Insulin Human Lispro (Humalog*) 0 units SUBCUT ACHS [facility]; Protocol Last Admin: 01/22/19 13:13 Dose: 6 units Insulin Human Lispro (Humalog*) 4 units SUBCUT ACHS [facility] Levothyroxine Sodium (Synthroid Tab*) 50 mcg PO DAILY@0600 [facility] Last Admin: 01/22/19 05:42 Dose: 50 mcg Lisinopril (Prinivil Tab*) 40 mg PO DAILY [facility] Magnesium Chloride (Slow Mag Ec Tab*) 64 mg PO BID [facility] Last Admin: 01/22/19 09:58 Dose: 64 mg Magnesium Hydroxide (Milk Of Magnesia Liq*) 30 ml PO DAILY PRN PRN Reason: CONSTIPATION Metformin HCl (Glucophage*) 500 mg PO DAILY [facility] Last Admin: 01/22/19 13:13 Dose: 500 mg Naltrexone HCl (Naltrexone Tab*) 50 mg PO DAILY [facility]; Protocol Last Admin: 01/22/19 10:01 Dose: 50 mg Ondansetron HCl (Zofran Inj*) 4 mg IV Q6H PRN PRN Reason: NAUSEA Pantoprazole Sodium (Protonix Tab*) 40 mg PO DAILY [facility] Last Admin: 01/22/19 10:01 Dose: 40 mg Vital Signs - 8 hr 01/22/19 01/22/19 01/22/19 07:24 07:38 10:05 Temperature 97.4 F Pulse Rate 48 Respiratory 18 18 Rate Blood Pressure 175/92 158/72 (mmHg) O2 Sat by Pulse 96 Oximetry 01/22/19 01/22/19 11:27 11:39 Temperature 97.7 F Pulse Rate 51 Respiratory 20 18 Rate Blood Pressure 174/96 154/78 (mmHg) O2 Sat by Pulse 99 Oximetry Oxygen Devices in Use Now: None Appearance: Patient is a 58yo male who appears older than stated age and is sitting in the bed in [facility]. Eyes: No Scleral Icterus, PERRLA Ears/Nose/Mouth/Throat: NL Teeth, Lips, Gums, Clear Oropharnyx, Mucous Membranes Moist Neck: NL Appearance and Movements; NL JVP, Trachea Midline Respiratory: Symmetrical Chest Expansion and Respiratory Effort, Clear to Auscultation Cardiovascular: NL Sounds; No Murmurs; No JVD, RRR, No Edema Abdominal: NL Sounds; No Tenderness; No Distention, No Hepatosplenomegaly Lymphatic: No Cervical Adenopathy Extremities: No Edema, No Clubbing, Cyanosis Skin: No Rash or Ulcers, No Nodules or Sclerosis Neurological: Alert and Oriented x 3, NL Sensation, NL Muscle Strength and Tone , - - CN II- XII intact. Result Diagrams: 01/16/19 06:39 01/21/19 08:49 Microbiology and Other Data: Microbiology 01/15/19 17:42 Aerobic Blood Culture - Preliminary Blood Venous No Growth Day 1 Anaerobic Blood Culture - Preliminary No Growth Day 1 01/15/19 17:55 Nasal Screen MRSA (PCR) - Final Nasal Mrsa Not Detected 01/14/19 21:55 Urine Culture - Final Urine No Growth (<1,000 CFU/mL) Diagnostic Imaging: Patient Name: RYLAND YBARRA Medical Record#: [id number] Ordering Physician: Mendez PARMAR Acct.#: [id number] : 1960 Age: 58 Sex: M Location: [address] [place] [id number] - MEDICAL Exam Date: 01/15/19 134 ADM Status: ADM Moon Order Information: MRI BRAIN W/O Accession Number: [id number] CPT: 78813 Indication: Possible stroke on CT. Sagittal and axial T1, axial T2, FLAIR, diffusion and susceptibility weighted images of the brain were obtained. Correlation is made with a CT scan done earlier the same day. Ventricular structures are midline. No midline shift is noted. Central and cortical atrophy is noted. Encephalomalacia in the left cerebellum is noted. No restriction of diffusion is noted in the left cerebellum. This likely represents atrophy. In the right posterior occipital lobe there is likely gliosis noted. There are however 2 small lacunar infarcts in the right isthmus corpus callosum. These demonstrates restriction of diffusion and decreased signal on the ADC map. Susceptibility weighted images demonstrates no definite hemosiderin. The T2 weighted images demonstrates increased signal in the right occipital lobe area. IMPRESSION: Likely old right occipital lobe infarct and left cerebellar infarct. There are 2 small foci of restriction of diffusion in the isthmus of the corpus callosum on the DWI images with decreased signal on the ADC map suggestive of lacunar infarct. Assess/Plan/Problems-Billing Assessment: Mr. Ybarra is a 58 yo M with PMH of TBI, CVA, unknown psychiatric disorders, and amphetamine abuse who was brought into the emergency room by police for acute confusion and hallucinations which has now resolved and patient is awaiting safe discharge. - Patient Problems (1) CVA (cerebral vascular accident) Current Visit: Yes Status: Acute Code(s): I63.9 - CEREBRAL INFARCTION, UNSPECIFIED SNOMED Code(s): 607471607 Comment: - Old infarct and encephalomalacia on MRI with possible new lacunar infarcts - Neurology following; does not believe this represents an acute CVA - Echo shows no PFO - Continue aspirin and Plavix dual antiplatelet therapy for 30 days, then Plavix monotherapy per neurology, patient was on DAPT at admission and this should be followed with with PCP at discharge before discontinuation. (2) Diabetes Current Visit: Yes Status: Acute Code(s): E11.9 - TYPE 2 DIABETES MELLITUS WITHOUT COMPLICATIONS SNOMED Code(s): 03533289 Comment: - With hyperglycemia and electrolyte disturbance at admission now improved, but BG still up into the 200s - A1c 10.1% - Continue Lispro SS, Lantus - Add Metformin and scheduled mealtime insulin. (3) HTN (hypertension) Current Visit: Yes Status: Acute Code(s): I10 - ESSENTIAL (PRIMARY) HYPERTENSION SNOMED Code(s): 68422039 Comment: - Hypertensive, SBP 160s - EKG shows sinus bradycardia - Continue amlodipine, clonidine; increase lisinopril; d/c atenolol d/t continued bradycardia - Will need close f/u with PCP after d/c (4) Hallucination Current Visit: Yes Status: Acute Code(s): R44.3 - HALLUCINATIONS, UNSPECIFIED SNOMED Code(s): 8534260 Comment: - Resolved - Psychiatry consulted; felt this was medication-related, possibly Vyvanse; recommends naltrexone for picking - Continue Abilify and naltrexone per Psych recommendations (5) History of CVA (cerebrovascular accident) Current Visit: Yes Status: Acute Code(s): Z86.73 - PRSNL HX OF TIA (TIA), AND CEREB INFRC W/O RESID DEFICITS SNOMED Code(s): 897060889 Comment: - Asymptomatic - Old infarct and encephalomalacia on MRI with possible new lacunar infarcts - Neurology following; does not believe this represents an acute CVA - TTE could not exclude small PFO; spoke with Dr. Coker who advises there is no need for ALEXA at this point and recommends continuing current antiplatelet therapy - Will need outpt f/u with Neurology in 2-4 weeks - Continue atorvastatin, aspirin and Plavix dual antiplatelet therapy for 30 days, then Plavix monotherapy for stroke. (6) Hypothyroid Current Visit: Yes Status: Acute Code(s): E03.9 - HYPOTHYROIDISM, UNSPECIFIED SNOMED Code(s): 77179690 Comment: - Continue levothyroxine (7) DVT prophylaxis Current Visit: Yes Status: Acute Code(s): HDT6303 - SNOMED Code(s): 358370663 Comment: - Heparin SQ (8) Full code status Current Visit: Yes Status: Acute Code(s): Z78.9 - OTHER SPECIFIED HEALTH STATUS SNOMED Code(s): 866700837 Comment: Status and Disposition: Inpatient. Patient cannot return to [facility] as per . Need safe discharge plan. Plan was for d/c today to [facility]. [facility], but pt does not have enough money to pay for prescriptions and he cannot be d/c'd without access to necessary medications. Sister will now not be able to picker tender medications until Saturday Evening.
[2019-01-22] MEDS: ARIPiprazole TAB* 5 MG PO SCH (23:31)
[2019-01-22] MEDS: Atorvastatin* 40 MG TAB PO SCH (23:31)
[2019-01-23] MEDS: Levothyroxine TAB* 50 MCG TAB PO SCH (05:47)
[2019-01-23] MEDS: Heparin VIAL(*) 5000 UNITS/ML VIAL (FIVE THOUSAND) SUBCUT SCH (05:47)
[2019-01-23] MEDS ORDERED: guaiFENesin LIQ* 100 MG/5 ML UDC PO PRN (06:02)
[2019-01-23 07:31] VITALS: BP 157/81
[2019-01-23] MEDS: Insulin GLARGINE(*) 1 UNITS UNIT SUBCUT SCH (09:00)
[2019-01-23] MEDS ORDERED: Lisinopril TAB* 10 MG PO SCH (09:00)
[2019-01-23] MEDS: Insulin LISPRO* 1 UNITS UNIT SUBCUT SCH ×2 (09:01→09:02)
[2019-01-23] MEDS: Naltrexone TAB* 50 MG TAB PO SCH (09:02)
[2019-01-23] MEDS: cloNIDine TAB* 0.1 MG PO SCH (09:03)
[2019-01-23] MEDS: Magnesium Chloride EC TAB* 64 MG PO SCH (09:03)
[2019-01-23] MEDS: metFORMIN* 500 MG TAB PO SCH (09:03)
[2019-01-23] MEDS: Aspirin 81 mg CHEW TAB* 81 MG TAB.CHEW PO SCH (09:03)
[2019-01-23] MEDS: amLODIPine TAB* 5 MG PO SCH (09:03)
[2019-01-23] MEDS: Pantoprazole TAB * 40 MG TAB PO SCH (09:03)
[2019-01-23] MEDS: DULoxetine DR CAP* 60 MG CAP.DR PO SCH (09:03)
[2019-01-23] MEDS: Clopidogrel TAB* 75 MG PO SCH (09:04)
--- NOTE | 2019-01-24 02:18 | DS ---
CC: Dr. Chan * DISCHARGE SUMMARY: DATE OF ADMISSION: 01/15/19 DATE OF DISCHARGE: 01/23/19 PRIMARY CARE PROVIDER: Dr. Chan. MY ATTENDING WHILE IN THE HOSPITAL: Dr. Braxton Richardson.* (DICTATED BY GHULAM REED) CHIEF COMPLAINT: Altered mental status, hallucinations likely due to drug use. SECONDARY DISCHARGE DIAGNOSES: 1. History of traumatic brain injury. 2. Hypertension. 3. Hyperlipidemia. 4. History of substance abuse. 5. Diabetes mellitus type 2. 6. History of alcoholism. 7. Hypothyroidism. STUDIES DONE WHILE IN THE HOSPITAL: Brain CT from 01/15/19 read as chronic- appearing encephalomalacia of the left cerebral hemisphere consistent with old infarct, khalil white matter obscuration of the right occipital lobe which may represent late subacute or chronic infarct. Negative for mass effect, negative for intracranial hemorrhage. 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 There are two small foci of restricted diffusion in the isthmus, the corpus callosum on the DWI images with decreased signal in the ADC map suggestive of lacunar infarct. Head CTA read as may be atherosclerosis or dissection aneurysm or flow limiting lesion in the intracranial carotid system or vertebral arteries. Transthoracic echocardiogram read as mild concentric left ventricular hypertrophy; normal left ventricular systolic function; estimated ejection fraction of 55% to 60%, closer to 55%; mild septal flattening of ventricular septum consistent with right ventricular volume and pressure overload; abnormal left ventricular diastolic function observed; left ventricular diastolic function pattern is restrictive; left atrium is mildly dilated; right ventricle wall thickness is mildly increased at 0.8 mm; left ventricle is mildly dilated; left ventricle function is normal; right atrium is mildly dilated; aortic valve leaflets are mildly thickened. There is mild mitral regurgitation, mild tricuspid regurgitation. Right ventricular systolic pressure is estimated at 32 mmHg. There is mild dilatation of the ascending aorta, there is mild dilatation of aortic arch, cannot exclude small PFO clinically indicated. We will continue further evaluation of the cardiac embolic source with a ALEXA. MEDICATIONS AT DISCHARGE: 1. Kaopectate 30 mL p.o. daily as needed. 2. Guaifenesin 10 mL p.o. daily as needed. 3. Magnesium hydroxide 30 mL p.o. daily as needed. 4. Calcium carbonate 1000 mg p.o. b.i.d. as needed. 5. Mylanta 30 mg p.o. daily as needed. 6. Tylenol 1000 mg p.o. q.6 hours as needed. 7. Magnesium chloride 64 mg p.o. b.i.d. 8. Insulin Lantus 20 units subcutaneous daily. 9. Plavix 75 mg p.o. daily. 10. Atorvastatin 40 mg p.o. daily. 11. Amlodipine 10 mg p.o. daily. 12. Duloxetine 60 mg p.o. daily. 13. Levothyroxine 50 mcg p.o. daily. 14. Metformin 1000 mg p.o. b.i.d. 15. Omeprazole 20 mg p.o. daily. 16. Naltrexone 50 mg p.o. daily. 17. Lisinopril 20 mg p.o. daily. 18. Glipizide 5 mg p.o. b.i.d. 19. Clonidine 0.2 mg p.o. t.i.d. 20. Aspirin 81 mg p.o. daily. 21. Aripiprazole 5 mg p.o. at bedtime. 22. Imodium 2 mg p.o. daily as needed. New medications at discharge: 1. Metformin. 2. Naltrexone. 3. Clonidine. 4. Aripiprazole. Medications discontinued at discharge: 1. Vyvanse 70 mg p.o. daily. 2. Clonidine 0.5 mg p.o. daily. 3. Ramipril 10 mg p.o. daily. 4. Atenolol 100 mg p.o. b.i.d. 5. Amlodipine 5 mg p.o. daily. HOSPITAL COURSE: This is a brief summary of the patient's presentation. For more details, please see the history and physical from GHULAM Reed on 05/29. In brief, patient is a 58-year-old male with a past medical history significant for the above who presented to the emergency department from the [facility] [place] where he had been acting erratically for several days with hallucinations, erratic behavior, and wandering. The patient had a recent admission in the behavior services unit at [place]. The patient also had a recent hospitalization at [facility] for his erratic behavior. The patient has a history, per his family, of abusing stimulant drugs such as methamphetamine. The patient came to the emergency department with concerns of mental health, but was overly sedated when assessed by the mental health provider. The patient was admitted to the hospital. The patient had a CT as above and an MRI concerning for acute infarct. The patient was seen in consultation by Neurology for both his altered mental status and his CVA and it was not believed that these were definitively new infarcts. The patient was continued on Plavix, which he was taking at home for unclear reasons and his aspirin dose was actually decreased. The patient was continued on Lipitor. The patient had a head CTA and transthoracic echocardiogram as above which were noncontributory. The patient became more lucid quickly in his hospitalization. The patient was seen in consultation by Psychiatry and was started on Abilify 5 mg p.o. daily as well as natrexone for skin picking. The patient denied any sort of previous substance abuse, a claim that was refuted by his family. Due to the patient's behavior, the [facility] declined to take him back. The patient during his hospitalization had no significant metabolic disturbance to explain his altered mental status. The patient's mental status returned to baseline. The patient was significantly hyperglycemic on admission with a hemoglobin A1c of 10.1. It is unclear whether the patient was taking his home medications. The patient had an episode of bradycardia and patient's atenolol was stopped and replaced with an increased dose of amlodipine and lisinopril. The patient declined any sort of placement. The patient demonstrated his competency to make medical decisions. The patient's Vyvanse was stopped and he had no further hallucinations. The patient was seen in consultation by Social Work, who arranged with Department of Clinical Documentation Improvement Specialist in [facility] to arrange for housing for patient. The patient was stable enough for discharge with this plan on 01/23/19. The patient was not able to get a full complement of his medications at discharge, but it was arranged for him to be able to waste picker his medications from the [facility]. PHYSICAL EXAMINATION ON THE DAY OF DISCHARGE: General: The patient is a 58- year- old male who appears his stated age, sitting comfortably in bed, in no acute distress. Vital Signs: At the time of discharge, temperature 97.5, pulse rate 51, respiratory rate 16, oxygen saturation 98% on room air, blood pressure 157/81. HEENT: Head: Normocephalic, atraumatic. Sclerae anicteric. No conjunctival injection. Nasal mucosa is moist. Oral mucosa moist. No pharyngeal erythema, discharge, or exudate. Neck: Supple, nontender. No lymphadenopathy. No carotid bruits auscultated. No JVD. Cardiac: Regular rate and rhythm. No clicks, murmurs, gallops, or rubs. Pulses 2+ in the bilateral dorsalis pedis, posterior tibialis, and radial areas. Respiratory: Clear to auscultation bilaterally. No wheezes, rhonchi. Good air exchange bilaterally. Abdomen: Soft, nontender, nondistended. Bowel sounds present and normoactive in all 4 quadrants. No hepatosplenomegaly. No hepatojugular reflux. Genitourinary: No suprapubic or CVA tenderness. Skin: Clear, dry, and intact. No rash. Neuro: Cranial nerves II through XII are intact. No focal deficits. Alert and oriented x3. Psychiatric: Pleasant and cooperative, somewhat . No hallucinations or delusions. DISCHARGE PLAN: The patient will be discharged to [facility] and he will first stop by the [facility] to collect his belongings and medications. It will be arranged for the patient to have emergency housing through the Department of Clinical Documentation Improvement Specialist with the [facility]. The patient will need access to a refrigerator due to his insulin. The patient will be continued on his home regimen of insulin. It is unlikely that he was taking this in the days leading up to his hospitalization, possibly earlier. The patient should follow up with his primary care provider within 1 week for general medical management. The patient should have adjustments made to his diabetic medications through this. The patient has a long history of insulin treatment, but was recently dialed back to oral only medications. The patient is not likely capable of effectively managing sliding scale or standing insulin with meals. The patient may also be a candidate for transitioning to Toujeo insulin as it is more flexible dosing for his possible erratic behavior. It should be attempted to keep patient on oral medications for as long as possible to control his diabetes given his erratic behavior. The patient should follow up with his primary care provider in 1 week to discuss these changes. The patient is slightly hypertensive on his medications at this time, though he was often normotensive. The patient should have medications adjusted by his primary provider. The patient's beta-leonora again should be avoided due to resting bradycardia. The patient should return to the hospital for chest pain, shortness of breath, passing out, or other alarming symptoms. The patient should follow up with an outpatient psychiatrist for long-term care of his significant psychiatric concerns. The patient should continue on Abilify and naltrexone. The patient should have a consistent carbohydrate, heart-healthy diet, caffeine okay. The patient should engage in activities as tolerated. TIME SPENT: Approximately 75 minutes was spent on the discharge of this patient , 30 of which was spent [id number] with the patient obtaining history and physical and discussing treatment plan. GHULAM REED [id number] #: [id number]
== END 2019-01-23 13:10 | disposition home or self-care (01) | DRG 861 ==
LOC: ED 20:55 → MED 01-15 13:31 → OBSVTOIN 01-16 08:00 → MED 01-20 14:13
PROVIDERS: ADMIT Student in an Organized Health Care Education/Training Program; ATTEND Internal Medicine
DX: R41.82 Altered mental status, unspecified (principal); N17.9 Acute kidney failure, unspecified; F15.151 Other stimulant abuse with stimulant-induced psychotic disorder with hallucinations; T43.625A Adverse effect of amphetamines, initial encounter; E11.65 Type 2 diabetes mellitus with hyperglycemia; I10 Essential (primary) hypertension; E78.5 Hyperlipidemia, unspecified; F90.9 Attention-deficit hyperactivity disorder, unspecified type; E03.9 Hypothyroidism, unspecified; F10.21 Alcohol dependence, in remission; F15.11 Other stimulant abuse, in remission; F14.11 Cocaine abuse, in remission; E66.9 Obesity, unspecified; F12.11 Cannabis abuse, in remission; R44.2 Other hallucinations; E86.0 Dehydration; Y92.099 Unspecified place in other non-institutional residence as the place of occurrence of the external cause; Z87.820 Personal history of traumatic brain injury; Z79.84 Long term (current) use of oral hypoglycemic drugs; Z79.02 Long term (current) use of antithrombotics/antiplatelets; Z79.82 Long term (current) use of aspirin; Z79.4 Long term (current) use of insulin; Z79.899 Other long term (current) drug therapy; Z80.8 Family history of malignant neoplasm of other organs or systems; Z68.39 Body mass index [BMI] 39.0-39.9, adult
CPT/HCPCS: 36415; 70450; 70496; 70498; 70551; 80048; 80053; 80061; 80307; 80320; 80329; 81003; 81015; 82140; 82803; 83036; 83735; 84436; 84443; 84481; 85025; 87040; 87086; 87641; 93005; 93306; 99285; A9270-GY; G0378; G0480; J1644; J3475; Q9967